=== PATIENT | male | born 1930 | race African-American/Black ===

== ENCOUNTER 2020-11-02 18:40 | Inpatient (IN) | payer MEDICARE, OTHER ==
[~2020-11-02] VITALS: Ht 172.7 cm; Wt 93.4 kg
--- NOTE | 2020-11-02 18:48 | NUR ---
[id number], from snf, low 02 sat 67% on room air, 96% on non-rebreather mask bp 67/40 on scene. [facility] bed 8, patient placed on isolation. on 79% oxygen saturation at RA, placed on NRB at 15lpm. o2 sat went up to 98%. patient aao X 0, unarousable by voice or tactile stimuli. changed to hosp gown. Noted w BLE edema, cagle catheter and distended abdomen. Dr holcomb at bedside
[2020-11-02] MEDS ORDERED: ACETAMINOPHEN 650 MG/SUPP.RECT RC ONE ×3 (18:57→19:04)
[2020-11-02] MEDS ORDERED: IV NS 0.9% 1,000 ML BAG IV ONE ×2 (19:00→20:30)
[2020-11-02] MEDS ORDERED: MEROPENEM 1 G in IV NS 0.9% 100 ML IV ONE (19:00)
[2020-11-02] MEDS ORDERED: LEVO75TA7 PO (19:02)
[2020-11-02] MEDS ORDERED: CRAN425C6 PO (19:02)
[2020-11-02] MEDS ORDERED: PANT40TA2 PO (19:02)
[2020-11-02] MEDS ORDERED: CRAN3875 PO (19:02)
[2020-11-02] MEDS ORDERED: CHOL100040 PO (19:02)
[2020-11-02] MEDS ORDERED: ASPI-1169 PO (19:02)
[2020-11-02] MEDS ORDERED: DOCU-141 PO (19:02)
[2020-11-02] MEDS ORDERED: ACET-868 PO (19:02)
[2020-11-02] MEDS ORDERED: ENOX40DI9 SQ (19:02)
[2020-11-02] MEDS ORDERED: MULT-447 PO (19:02)
[2020-11-02] MEDS ORDERED: FERR325T23 PO (19:02)
[2020-11-02] MEDS ORDERED: LISI40TA4 PO (19:02)
[2020-11-02] MEDS ORDERED: ASCO500T87 PO (19:02)
[2020-11-02] MEDS ORDERED: ATOR10TA PO (19:02)
[2020-11-02] MEDS ORDERED: IPRA3AMP23 IH (19:02)
[2020-11-02 19:09] LABS: BASOPHILS % (AUTO) 0.3 % (0.0-2.0); EOSINOPHILS % (AUTO) 0.1 % (0.0-6.0); HEMATOCRIT 26 % (39-51); HEMOGLOBIN 8.3 g/dL (13.5-17.5); LYMPHOCYTES # (AUTO) 2.1 /CMM (0.8-4.8); LYMPHOCYTES % (AUTO) 18.1 % (20.0-44.0); MEAN CORPUSCULAR HGB CONC 32 g/dl (31.0-36.0); MEAN CORPUSCULAR VOLUME 88 fL (80-96); MONOCYTES # (AUTO) 0.8 /CMM (0.1-1.30); MONOCYTES % (AUTO) 7.3 % (2.0-12.0); NEUTROPHILS # (AUTO) 8.5 /CMM (1.8-8.9); NEUTROPHILS % (AUTO) 74.2 % (43.0-81.0); PLATELET COUNT (AUTO) 287 /CMM (150-450); RED BLOOD CELL COUNT(AUTO) 2.91 MIL/uL (4.5-6.0); WHITE BLOOD COUNT (AUTO) 11.4 K/uL (4.3-11.0)
--- NOTE | 2020-11-02 19:12 | NUR ---
[facility] TEACHER AT BEDSIDE
--- NOTE | 2020-11-02 19:14 | NUR ---
COVID (RAPID AND PCR) DONE AND SENT TO LAB
--- NOTE | 2020-11-02 19:15 | NUR ---
RAPID INFLUENXA SWAB DONE AND SENT TO LAB
--- NOTE | 2020-11-02 19:25 | NUR ---
NGT INSERTED TO R NARE, NOTED G-TUBE FEEDING GASTRIC CONTENT NOTED APPROXIMATEL 650ML'S NOTED.
[2020-11-02 19:34] LABS: ALANINE AMINOTRANSFERASE 67 U/L (12-78); ALBUMIN 1.8 g/dL (3.4-5.0); ALKALINE PHOSPHATASE 75 U/L (46-116); ASPARTATE AMINOTRANSFERASE 84 U/L (15-37); BILIRUBIN,DIRECT 0.1 mg/dL (0.0-0.2); BILIRUBIN,TOTAL 0.4 mg/dL (0.2-1.0); CALCIUM, SERUM 8.1 mg/dL (8.5-10.1); CARBON DIOXIDE 22 mmol/L (21-32); CHLORIDE 96 mmol/L (98-107); GLUCOSE 158 mg/dL (74-106); SODIUM SERUM 138 mmol/L (136-145); TOTAL PROTEIN, SERUM 7.8 g/dL (6.4-8.2)
--- NOTE | 2020-11-02 19:40 | NUR ---
URINE SAMPLE COLLECTED FROM RAYMUNDO CATHETER. SENT SAMPLE TO LAB
[2020-11-02 19:47] LABS: BILIRUBIN,URINE SMALL (NEGATIVE); COLOR,URINE YELLOW (YELLOW); LEUKOCYTE ESTERASE ,URINE Trace (NEGATIVE); NITRITE, URINE Negative (NEGATIVE); PROTEIN,URINE >=300 mg/dl (NEGATIVE); UGLUCOSE Negative (NEGATIVE); UROBILINOGEN,URINE 0.2 EU/dL (0.2)
[2020-11-02 19:50] LABS: ABG BASE EXCESS -6.3 mmol/L; ABG OXYGEN SATURATION 97.7 % (92.0-98.5); ABG PCO2 52.2 mmHg (35.0-45.0); ABG PH 7.225 (7.350-7.450); ABG PO2 131.7 mmHg (75.0-100.0); AaDO2 383.9 mmHg; MetHb 0.7 % (0.0-1.5); SITE, ABG Left Radial; VENT MODE, BG 15L NRB
[2020-11-02 20:01] LABS: POTASSIUM 2.4 mmol/L (3.5-5.1)
[2020-11-02 20:02] LABS: CREATININE 11.4 mg/dL (0.6-1.3); UREA NITROGEN, BLOOD 140 mg/dL (7-18)
[2020-11-02 20:05] LABS: PH,URINE >9.0 (5.0-8.0)
--- NOTE | 2020-11-02 20:09 | NUR ---
PT TRANSPORTED TO RADIOLOGY FOR CT ABD/PELVIS WITH DELIA MARTINES.
[2020-11-02 20:10] LABS: BACTERIA,URINE Many /HPF (None Seen); RBC,URINE 0-2 /HPF (0-2); SQUAMOUS EPITHELIAL CELL,UR Few /HPF (None Seen); WBC,URINE 0-2 /HPF (0-3)
[2020-11-02 20:11] LABS: CALCIUM OXALATE CRYSTALS,UR Moderate /HPF (None Seen)
[2020-11-02] MEDS ORDERED: IV PREMIX D5 1/2NS + KCL 1,000 ML IV ONE ×2 (20:30→21:22)
--- NOTE | 2020-11-02 20:33 | NUR ---
RT pt placed on bipap per md order post abg results on 15lnrb. ph 7.22 co2 52 o2 131 hco3 21. bipap settings: 12 15/4 50% bipap plugged in to red outlet, ambu bag at bedside. pt tolerating bipap well at this time. will continue to monitor.
--- NOTE | 2020-11-02 20:36 | NUR ---
F/C IRRIGATED WITH 50ML'S NS WITH MODERATE AMOUNT OF PUS APPEARING URINE NOTED APPROXIMATELY 800ML'S. ER MADE AWARE.
--- NOTE | 2020-11-02 21:46 | NUR ---
P/C OUTPUT = 1300 MILKY COLOR URINE WITH BLOOD CLOTS NOTED. ER MADE AWARE.
--- NOTE | 2020-11-02 23:00 | NUR ---
RT AT BEDSIDE FOR REPEAT ABG.
[2020-11-02 23:11] LABS: ABG BASE EXCESS -5.3 mmol/L; ABG OXYGEN SATURATION 97.2 % (92.0-98.5); ABG PCO2 38.5 mmHg (35.0-45.0); ABG PH 7.335 (7.350-7.450); ABG PO2 106.2 mmHg (75.0-100.0); COHb 0.7 % (0.5-1.5); MetHb 0.3 % (0.0-1.5); O2Hb 96.2 % (94.0-97.0); SITE, ABG Left Radial; VENT MODE, BG ST 15/4 R12 50%
--- NOTE | 2020-11-02 23:18 | NUR ---
BIPAP SETTING CANGED BY RT TO 15/4, R-12, FIO2-50%. WILL CONTINUE TO MONITOR PT CLOSELY.
[2020-11-03] MEDS ORDERED: ONDANSETRON HCL/PF 4 MG/2 ML VIAL IVP PRN
[2020-11-03] MEDS ORDERED: HYDROCODONE/APAP 5/325MG TABLET GT PRN
[2020-11-03] MEDS ORDERED: IV NS 0.9% 1,000 ML IV PRN
[2020-11-03] MEDS ORDERED: MAGNESIUM HYDROXIDE 30 ML UDC PO PRN
[2020-11-03] MEDS ORDERED: Z GUARD REMEDY 2 OZ OINT TP PRN
[2020-11-03] MEDS ORDERED: ZOLPIDEM TARTRATE 5 MG TABLET PO PRN
[2020-11-03] MEDS ORDERED: TEMAZEPAM 15 MG CAPSULE GT PRN
[2020-11-03] MEDS ORDERED: ACETAMINOPHEN 650 MG/SUPP.RECT RC PRN
[2020-11-03] MEDS ORDERED: DEXTROSE 50%-WATER 50 ML DISP.SYRIN IV PRN (00:30)
[2020-11-03] MEDS ORDERED: VANCOMYCIN 1.5 GM in IV D5W 500ml IV ONE (00:30)
[2020-11-03] MEDS: BLOOD SUGAR DIAGNOSTIC 1 EACH STRIP IN SCH ×4 (00:41→17:56)
[2020-11-03] MEDS ORDERED: VANCOMYCIN 1 GM VIAL ONE (00:42)
[2020-11-03] MEDS ORDERED: VANCOMYCIN 500 MG VIAL ONE (00:42)
[2020-11-03] MEDS: INSULIN REGULAR, HUMAN 100 UNIT/ML 3 ML VIAL SQ PRN ×3 (00:55→12:24)
--- NOTE | 2020-11-03 01:19 | NUR ---
PT RESTING QUIETLY, NO ACUTE DISTRESS NOTED, RESP EVEN AND UNLABORE. NO PAIN OR DISCOMFORT NOTED AT THIS TIME. CALL LIGHT WITHIN REACH. WILL CONTINUE TO MONITOR PT CLOSELY.
[2020-11-03] MEDS ORDERED: NOREPINEPHRINE 4 MG/4 ML AMPUL IV ONE (01:55)
[2020-11-03] MEDS: NOREPINEPHRINE 8 MG in IV NS 0.9% 242 ML IV PRN ×2 (02:17→15:22)
--- NOTE | 2020-11-03 02:18 | NUR ---
LEVOPHED DRIP STARTED ON THE MAI PICC LINE FOR BP 81/45, HR-59, RR-15, O2 SAT-99% ON CURRENT BIPAP SETTING 15/4, RATE-12, FIO2 30%. WILL CONTINUE TO MONITOR PT CLOSELY.
[2020-11-03] MEDS ORDERED: MEROPENEM 1 G in IV NS 0.9% 100 ML IV ONE (04:00)
[2020-11-03] MEDS ORDERED: MEROPENEM 1 G VIAL IV ONE (04:04)
[2020-11-03 04:39] LABS: BASOPHILS % (AUTO) 0.1 % (0.0-2.0); EOSINOPHILS % (AUTO) 0.1 % (0.0-6.0); HEMATOCRIT 25 % (39-51); HEMOGLOBIN 8.2 g/dL (13.5-17.5); LYMPHOCYTES # (AUTO) 1.6 /CMM (0.8-4.8); LYMPHOCYTES % (AUTO) 9.2 % (20.0-44.0); MEAN CORPUSCULAR HGB CONC 33 g/dl (31.0-36.0); MEAN CORPUSCULAR VOLUME 86 fL (80-96); MONOCYTES # (AUTO) 0.9 /CMM (0.1-1.30); MONOCYTES % (AUTO) 5.4 % (2.0-12.0); NEUTROPHILS # (AUTO) 14.4 /CMM (1.8-8.9); NEUTROPHILS % (AUTO) 85.2 % (43.0-81.0); PLATELET COUNT (AUTO) 267 /CMM (150-450); RED BLOOD CELL COUNT(AUTO) 2.89 MIL/uL (4.5-6.0); WHITE BLOOD COUNT (AUTO) 16.9 K/uL (4.3-11.0)
--- NOTE | 2020-11-03 04:39 | NUR ---
CLEANED PATIENT. CHANGED TO NEW LINEN AND HOSP GOWN.
[2020-11-03 04:47] LABS: CALCIUM, SERUM 7.5 mg/dL (8.5-10.1); CARBON DIOXIDE 20 mmol/L (21-32); CHLORIDE 99 mmol/L (98-107); GLUCOSE 222 mg/dL (74-106); PHOSPHORUS 4.4 mg/dL (2.5-4.9); SODIUM SERUM 138 mmol/L (136-145)
[2020-11-03 04:55] LABS: CHOLESTEROL 110 mg/dL (<200); HDL CHOLESTEROL 26 mg/dL (40-60); LDL 56 mg/dL (0-99); TRIGLYCERIDES 102 mg/dL (30-150)
--- NOTE | 2020-11-03 04:59 | NUR ---
K 2.1 CR 9.37 BUN 129
[2020-11-03] MEDS ORDERED: MEROPENEM 1 G in IV NS 0.9% 100 ML IV SCH (05:00)
[2020-11-03 05:02] LABS: CREATININE 9.4 mg/dL (0.6-1.3); POTASSIUM 2.1 mmol/L (3.5-5.1); UREA NITROGEN, BLOOD 129 mg/dL (7-18)
[2020-11-03 05:37] LABS: BAND % (MANUAL) 17 % (0.0-5.0); LYMPHOCYTES % (MANUAL) 7 % (16-48); MONOCYTES % (MANUAL) 3 % (0-11.0); NEUTROPHILS % (MANUAL) 73 (42-76)
[2020-11-03] MEDS ORDERED: POTASSIUM CHLORIDE 20 MEQ POWDER PACKET GT ONE (07:00)
--- NOTE | 2020-11-03 07:14 | NUR ---
REPORT GIVEN TO AM SHIFT DELIA SANTIAGO
--- NOTE | 2020-11-03 07:15 | NUR ---
RECEIVED REPORT FROM SALES TECHNICIAN HOME THEATER FOR MARILYNN. PT IS AAOX0, ON VENT VIA TRACH, V/S STABLE, WITH ONGOING IVF AND LEVOPHED TRANSFUSING WELL, KEPT RESTED AND COMFORTABLE. WILL CONTINUE TO MONITOR.
[2020-11-03] MEDS ORDERED: POTASSIUM CHLORIDE 20 MEQ POWDER PACKET ONE (07:49)
[2020-11-03] MEDS ORDERED: PANTOPRAZOLE 40 MG VIAL ONE (08:44)
[2020-11-03] MEDS: PANTOPRAZOLE 40 MG VIAL IV SCH (08:48)
[2020-11-03] MEDS: POTASSIUM CL. PREMIX PERIPHER. 50 ML IV SCH ×4 (09:52→12:50)
[2020-11-03] MEDS: Potassium Chloride 20 MEQ in IV NS 0.9% 1,000 ML IV PRN (09:52)
--- NOTE | 2020-11-03 10:35 | NUR ---
RT AT BEDSIDE FOR BIPAP REMOVAL. PT IS ON NASAL CAN AT 2 LPM 02 SAT OF 97%. V/S STABLE. WILL CONTINUE TO MONITOR.
[2020-11-03 11:17] LABS: ABG BASE EXCESS -6.1 mmol/L; ABG OXYGEN SATURATION 94.3 % (92.0-98.5); ABG PCO2 35.8 mmHg (35.0-45.0); ABG PH 7.343 (7.350-7.450); ABG PO2 74.8 mmHg (75.0-100.0); AaDO2 140.4 mmHg; COHb 0.3 % (0.5-1.5); MetHb 0.5 % (0.0-1.5); O2Hb 93.5 % (94.0-97.0); SITE, ABG Right Radial; VENT MODE, BG NC4L
--- NOTE | 2020-11-03 11:35 | NUR ---
RT AT BEDSIDE FOR ABG AFTER REMOVAL OF BIPAP.
[2020-11-03] MEDS ORDERED: INSULIN REGULAR, HUMAN 100 UNIT/ML 10 ML VIAL ONE (12:22)
--- NOTE | 2020-11-03 12:49 | NUR ---
DRAINED 1350ML OF URINE OUTPUT.
[2020-11-03 14:16] LABS: CALCIUM, SERUM 7.5 mg/dL (8.5-10.1); CARBON DIOXIDE 22 mmol/L (21-32); CHLORIDE 104 mmol/L (98-107); GLUCOSE 144 mg/dL (74-106); SODIUM SERUM 140 mmol/L (136-145)
[2020-11-03 14:19] LABS: CREATININE 7.5 mg/dL (0.6-1.3); POTASSIUM 2.7 mmol/L (3.5-5.1); UREA NITROGEN, BLOOD 125 mg/dL (7-18)
--- NOTE | 2020-11-03 19:16 | NUR ---
REPORT GIVEN TO DELIA JOHNSON FOR MARILYNN. WITH ONGOING IVF AND LEVOPHED TITRATE TO EFFECT. V/S STABLE.
--- NOTE | 2020-11-03 20:23 | NUR ---
PATIENT IS REPOSITIONED TO THE LEFT
--- NOTE | 2020-11-03 22:34 | NUR ---
PATIENT IS REPOSITIONED TO THE RIGHT.
[2020-11-04] VITALS (39 sets, daily range): BP systolic 80–154; BP diastolic 50–107
--- NOTE | 2020-11-04 00:14 | NUR ---
PATIENT IS REPOSITIONED TO THE LEFT.
[2020-11-04] MEDS: BLOOD SUGAR DIAGNOSTIC 1 EACH STRIP IN SCH ×4 (01:09→18:23)
--- NOTE | 2020-11-04 02:13 | NUR ---
PATIENT HAD A BOWEL MOVEMENT. PATIENT IS CLEANED. PROVIDED WITH CLEAN SHEETS AND NEW GOWN. PATIENT IS REPOSITIONED TO THE RIGHT. PATIENT IS PROVIDED WITH A WARM BLANKET. NO FEVER NOTED.
[2020-11-04] MEDS: MEROPENEM 500 MG in IV NS 0.9% 50 ML IV SCH (04:32)
[2020-11-04 05:33] LABS: BASOPHILS % (AUTO) 0.2 % (0.0-2.0); EOSINOPHILS % (AUTO) 0.1 % (0.0-6.0); HEMATOCRIT 27 % (39-51); LYMPHOCYTES # (AUTO) 2.4 /CMM (0.8-4.8); LYMPHOCYTES % (AUTO) 10.8 % (20.0-44.0); MEAN CORPUSCULAR HGB CONC 34 g/dl (31.0-36.0); MEAN CORPUSCULAR VOLUME 85 fL (80-96); MONOCYTES # (AUTO) 1.6 /CMM (0.1-1.30); MONOCYTES % (AUTO) 7.1 % (2.0-12.0); NEUTROPHILS % (AUTO) 81.8 % (43.0-81.0); PLATELET COUNT (AUTO) 350 /CMM (150-450); RED BLOOD CELL COUNT(AUTO) 3.15 MIL/uL (4.5-6.0)
[2020-11-04 06:02] LABS: ALANINE AMINOTRANSFERASE 49 U/L (12-78); ALBUMIN 1.5 g/dL (3.4-5.0); ALKALINE PHOSPHATASE 84 U/L (46-116); ASPARTATE AMINOTRANSFERASE 52 U/L (15-37); BILIRUBIN,TOTAL 0.4 mg/dL (0.2-1.0); CALCIUM, SERUM 7.7 mg/dL (8.5-10.1); CARBON DIOXIDE 22 mmol/L (21-32); CHLORIDE 108 mmol/L (98-107); CREATININE 5.3 mg/dL (0.6-1.3); GLUCOSE 131 mg/dL (74-106); MAGNESIUM 2.8 mg/dL (1.8-2.4); PHOSPHORUS 2.9 mg/dL (2.5-4.9); SODIUM SERUM 147 mmol/L (136-145); TOTAL PROTEIN, SERUM 6.7 g/dL (6.4-8.2); VANCOMYCIN,RANDOM 14 ug/ml (18-26)
--- NOTE | 2020-11-04 06:03 | NUR ---
K 2.4 BUN 113
[2020-11-04 06:04] LABS: POTASSIUM 2.4 mmol/L (3.5-5.1); UREA NITROGEN, BLOOD 113 mg/dL (7-18)
[2020-11-04 06:19] LABS: CREATINE KINASE, TOTAL 1238 U/L (39-308)
--- NOTE | 2020-11-04 07:36 | NUR ---
REPORT GIVEN TO TUCKER LIN FOR MARILYNN.
[2020-11-04] MEDS: Potassium Chloride 20 MEQ in IV NS 0.9% 1,000 ML IV PRN ×2 (07:37→18:24)
--- NOTE | 2020-11-04 07:38 | NUR ---
PT IN BED SLEEPING. BREATHING EVEN AND UNLABORED. ON NASAL CANULA @ 4LPM.
--- NOTE | 2020-11-04 07:38 | NUR ---
PT IN LEVOPHED 0.1MCG/KG/MIN. VSS
[2020-11-04] MEDS ORDERED: PANTOPRAZOLE 40 MG VIAL ONE (08:11)
[2020-11-04] MEDS: PANTOPRAZOLE 40 MG VIAL IV SCH (08:48)
--- NOTE | 2020-11-04 10:16 | NUR ---
room 256
--- NOTE | 2020-11-04 11:08 | NUR ---
CALLED ANDS SPOKE WITH HUGH COPELAND REGARDING PT'S POTASSIUM OF 2.4. HUGH IS AWARE. NO NEW ORDERS AT THIS TIME. SHE WILL SE THE PATIENT DURING HER ROUNDS.
--- NOTE | 2020-11-04 11:46 | NUR ---
REPORT GIVEN TO DELIA MORTENSEN FOR MARILYNN
--- NOTE | 2020-11-04 12:15 | NUR ---
PT TRANSPORTED TO UNIT ON GURNEY WITH EMT AND RN AT BEDSIDE W/ ACLS PROTOCOL. NAD NOTED DURING TRANSPORT.
[2020-11-04] MEDS ORDERED: POTASSIUM CHLORIDE 20 MEQ POWDER PACKET GT ONE ×2 (13:00→15:30)
[2020-11-04 15:26] LABS: CALCIUM, SERUM 7.6 mg/dL (8.5-10.1); CARBON DIOXIDE 22 mmol/L (21-32); CHLORIDE 112 mmol/L (98-107); CREATININE 4.3 mg/dL (0.6-1.3); GLUCOSE 138 mg/dL (74-106); SODIUM SERUM 150 mmol/L (136-145)
[2020-11-04 15:34] LABS: POTASSIUM 2.4 mmol/L (3.5-5.1); UREA NITROGEN, BLOOD 105 mg/dL (7-18)
--- NOTE | 2020-11-04 19:45 | NUR ---
RN NOTES, PATIENT OBTUNDED IN BED, NO RESP DISTRESS NOTED IN NC AT 5LPM WITH OPTIMAL O2 SAT LEVEL 95% AT THIS TIME, MAI PICC LINE IN PLACE, AND NS WITH 20MEQ K+ INFUSING ORDERED, F/C IN PLACED DRAINING YELLOW URINE BY GRAVITY, WILL CONTINUE TO MONITOR CLOSELY. MONITOR CLOSELY,
[2020-11-04] MEDS: NOREPINEPHRINE 8 MG in IV NS 0.9% 242 ML IV PRN (21:03)
[2020-11-05] VITALS (86 sets, daily range): BP systolic 92–140; BP diastolic 46–109
[2020-11-05] MEDS ORDERED: VANCOMYCIN 1 GM in IV D5W 250 ML IV SCH ×2
[2020-11-05] MEDS: BLOOD SUGAR DIAGNOSTIC 1 EACH STRIP IN SCH ×5 (00:13→23:57)
[2020-11-05] MEDS: INSULIN REGULAR, HUMAN 100 UNIT/ML 3 ML VIAL SQ PRN ×4 (00:14→23:57)
[2020-11-05] MEDS: MEROPENEM 500 MG in IV NS 0.9% 50 ML IV SCH (04:10)
[2020-11-05 04:31] LABS: BASOPHILS # (AUTO) 0.1 /CMM (0.0-0.2); BASOPHILS % (AUTO) 0.4 % (0.0-2.0); EOSINOPHILS % (AUTO) 0.2 % (0.0-6.0); HEMATOCRIT 26 % (39-51); HEMOGLOBIN 8.3 g/dL (13.5-17.5); LYMPHOCYTES # (AUTO) 2.6 /CMM (0.8-4.8); LYMPHOCYTES % (AUTO) 10.9 % (20.0-44.0); MEAN CORPUSCULAR HGB CONC 32 g/dl (31.0-36.0); MEAN CORPUSCULAR VOLUME 86 fL (80-96); MONOCYTES # (AUTO) 1.5 /CMM (0.1-1.30); MONOCYTES % (AUTO) 6.5 % (2.0-12.0); NEUTROPHILS # (AUTO) 19.4 /CMM (1.8-8.9); PLATELET COUNT (AUTO) 348 /CMM (150-450); RED BLOOD CELL COUNT(AUTO) 3.05 MIL/uL (4.5-6.0); WHITE BLOOD COUNT (AUTO) 23.6 K/uL (4.3-11.0)
[2020-11-05 04:43] LABS: CARBON DIOXIDE 25 mmol/L (21-32); CHLORIDE 115 mmol/L (98-107); CREATININE 3.5 mg/dL (0.6-1.3); GLUCOSE 145 mg/dL (74-106); MAGNESIUM 2.6 mg/dL (1.8-2.4); PHOSPHORUS 2.7 mg/dL (2.5-4.9); SODIUM SERUM 153 mmol/L (136-145)
[2020-11-05 04:54] LABS: POTASSIUM 2.4 mmol/L (3.5-5.1)
[2020-11-05 04:57] LABS: UREA NITROGEN, BLOOD 96 mg/dL (7-18)
[2020-11-05] MEDS ORDERED: POTASSIUM CHLORIDE 10 MEQ/50 ML PREMIXED IVPB FOR PERIPHERAL LINE IV ONE (06:00)
--- NOTE | 2020-11-05 07:41 | NUR ---
RN NOTES, NO SIGNIFICANT CHANGE IN CONDITION DURING THE THE NIGHT, ENDORSED TO BALBINA LIN FOR CONTINUATION OF CARE.
[2020-11-05 08:12] LABS: PTH, INTACT 88 pg/mL (15-65)
--- NOTE | 2020-11-05 08:42 | NUR ---
WOUND CARE CONSULT: PT PRESENTS WITH MULTIPLE WOUNDS PRESENT ON ADMISSION INCLUDING SACRAL STAGE 4 ULCER, RT AND LEFT HEEL WOUNDS AND LEFT LOWERLEG WOUND. RECOMMEND SURGICAL AND DPM CONSULTS. DR MELISA LEYVA AND DR WILLINGHAM NOTIFIED OF CONSULT REQUESTS. PT IS ON JUDY ISOFLEX LOW AIRLOSS BED. ALL SKIN PROTECTION AND SACRAL WOUND RECOMMENDATIONS DISCUSSED WITH NURSING STAFF. DEFER TO DPM FOR LOWER EXTREMITIES. MD IN AGREEMENT WITH PLAN OF CARE. Addendum: 11/05/20 at 0844 by MAGO DOTSON WNDNU Amended: Links added.
[2020-11-05 09:07] LABS: *SPE A/G RATIO 0.4 (0.7-1.7); *SPE ALBUMIN 1.8 g/dL (2.9-4.4); *SPE ALPHA-1-GLOBULIN 0.5 g/dL (0.0-0.4); *SPE ALPHA-2-GLOBULIN 1.1 g/dL (0.4-1.0); *SPE GLOBULIN, TOTAL 4.1 g/dL (2.2-3.9); *SPE M-SPIKE Not Observed g/dL (Not Observed); *SPEGAMMA GLOBULIN 1.6 g/dL (0.4-1.8)
--- NOTE | 2020-11-05 09:37 | NUR ---
PER REPORT NIGHTSHIFT RN JEAN RECEIVED AN ORDER FOR 30MEQ KCL IV. ALL 3 10MEQ BAGS WERE SCANNED IN AT ONE TIME PER OVERRIDE ORDER. ALL 3 10MEQ BAGS WERE PASSED ON TO DAY SHIFT. EACH BAG WILL BE GIVEN OVER 1HR PER PROTOCOL. PHARMACY AWARE, UNABLE TO UNDO PREVIOUS RNS DOCUMENTATION SO THIS NOTE IS TO CLARIFY THAT 30MEQS WERE NOT GIVEN AT ONE TIME.
[2020-11-05] MEDS: PANTOPRAZOLE 40 MG VIAL IV SCH (10:59)
[2020-11-05] MEDS: DAKINS QUARTER STRENGTH (0.125%) 480 ML BOTTLE TOP SCH (12:32)
[2020-11-05 15:19] LABS: CREATININE KINASE (CK),MB 12.5 ng/mL (0.0-10.4)
[2020-11-05] MEDS: Potassium Chloride 20 MEQ in IV NS 0.9% 1,000 ML IV PRN (15:50)
[2020-11-05] MEDS: SILVER SULFADIAZINE CREAM 25 GM TUBE TP SCH (16:53)
[2020-11-05] MEDS: Potassium Chloride 40 MEQ in IV D5W 1,000 ML IV PRN (18:44)
--- NOTE | 2020-11-05 20:24 | NUR ---
RN NOTES PATIENT IS OBTUNDED, NO SOB OR ANY S/S OF RESP DISTRESS. ON O2 5LPM VIA NASAL CANNULA, O2 SAT 95%. MAI PICC LINE IN PLACE AND INTACT. F/C IN PLACE DRAINING YELLOW URINE BY GRAVITY. SAFETY MEASURES IN PLACE. WILL CONTINUE TO MONITOR.
[2020-11-06] VITALS (53 sets, daily range): BP systolic 81–115; BP diastolic 43–99
[2020-11-06] MEDS: MEROPENEM 500 MG in IV NS 0.9% 50 ML IV SCH (03:31)
[2020-11-06 04:29] LABS: BASOPHILS # (AUTO) 0.1 /CMM (0.0-0.2); BASOPHILS % (AUTO) 0.4 % (0.0-2.0); EOSINOPHILS % (AUTO) 0.5 % (0.0-6.0); HEMATOCRIT 23 % (39-51); HEMOGLOBIN 7.6 g/dL (13.5-17.5); LYMPHOCYTES # (AUTO) 2.1 /CMM (0.8-4.8); LYMPHOCYTES % (AUTO) 11.5 % (20.0-44.0); MEAN CORPUSCULAR HGB CONC 33 g/dl (31.0-36.0); MEAN CORPUSCULAR VOLUME 86 fL (80-96); MONOCYTES # (AUTO) 1.4 /CMM (0.1-1.30); MONOCYTES % (AUTO) 7.3 % (2.0-12.0); NEUTROPHILS # (AUTO) 14.9 /CMM (1.8-8.9); NEUTROPHILS % (AUTO) 80.3 % (43.0-81.0); PLATELET COUNT (AUTO) 300 /CMM (150-450); RED BLOOD CELL COUNT(AUTO) 2.71 MIL/uL (4.5-6.0); WHITE BLOOD COUNT (AUTO) 18.6 K/uL (4.3-11.0)
[2020-11-06 04:56] LABS: CALCIUM, SERUM 7.8 mg/dL (8.5-10.1); CARBON DIOXIDE 24 mmol/L (21-32); CHLORIDE 119 mmol/L (98-107); CREATININE 2.4 mg/dL (0.6-1.3); GLUCOSE 137 mg/dL (74-106); PHOSPHORUS 2.1 mg/dL (2.5-4.9)
[2020-11-06 05:18] LABS: SODIUM SERUM 158 mmol/L (136-145)
[2020-11-06 05:19] LABS: POTASSIUM 2.5 mmol/L (3.5-5.1); UREA NITROGEN, BLOOD 81 mg/dL (7-18)
[2020-11-06] MEDS: BLOOD SUGAR DIAGNOSTIC 1 EACH STRIP IN SCH ×3 (05:50→17:13)
[2020-11-06] MEDS: Potassium Chloride 40 MEQ in IV D5W 1,000 ML IV PRN ×2 (05:52→17:55)
[2020-11-06] MEDS: INSULIN REGULAR, HUMAN 100 UNIT/ML 3 ML VIAL SQ PRN ×2 (05:52→11:46)
--- NOTE | 2020-11-06 06:50 | NUR ---
WITH CRITICAL LAB NA 158, POTASSIUM 2.[address] WHITE MADE AWARE WITH NEW ORDER FOR POTASSIUM CHLORIDE 40MEQ (4 BAGS) IV PIGGY BACK NOTED AND CARRIED OUT.
[2020-11-06] MEDS: POTASSIUM CL. PREMIX PERIPHER. 50 ML IV SCH ×4 (07:28→10:31)
--- NOTE | 2020-11-06 08:00 | NUR ---
RN OPENING NOTES PATIENT IS OBTUNDED, NO SOB OR ANY S/S OF RESP DISTRESS. ON O2 5LPM VIA NASAL CANNULA, O2 SAT 92%. MAI PICC LINE IN PLACE AND INTACT NO S/S OF INFECTION OR INFILTRATION NOTED. F/C IN PLACE DRAINING YELLOW URINE BY GRAVITY. NO S/S OF ANY DISCOMFORT. SAFETY MEASURES IN PLACE PER HOSPITAL POLICY BED IS IN THE LOWEST POSITION AND SIDE RAILS ARE UP X2. WILL CONTINUE TO MONITOR
--- NOTE | 2020-11-06 08:14 | NUR ---
RN NOTES PATIENT IS OBTUNDED, NO SOB OR ANY S/S OF RESP DISTRESS. ON O2 5LPM VIA NASAL CANNULA, O2 SAT 92%. MAI PICC LINE IN PLACE AND INTACT. F/C IN PLACE DRAINING YELLOW URINE BY GRAVITY. NO S/S OF ANY DISCOMFORT. ALL DUE MEDS GIVEN ORDERED. SAFETY MEASURES IN PLACE. ENDORSED TO ONCOMING SHIFT.
[2020-11-06] MEDS: DAKINS QUARTER STRENGTH (0.125%) 480 ML BOTTLE TOP SCH (08:58)
[2020-11-06] MEDS: PANTOPRAZOLE 40 MG VIAL IV SCH (08:58)
[2020-11-06] MEDS: SILVER SULFADIAZINE CREAM 25 GM TUBE TP SCH (08:59)
[2020-11-06] MEDS ORDERED: SILVER NITRATE APPLICATOR 1 EA BOX TP ONE ×2 (11:30)
[2020-11-06] MEDS ORDERED: LIDOCAINE 1%-EPI 1:200,000 SDV 10 ML VIAL IJ ONE (11:30)
--- NOTE | 2020-11-06 11:30 | NUR ---
RN NOTES PATIENT WAS [facility].
[2020-11-06] MEDS ORDERED: IV D5W 1,000 ML IV PRN (12:00)
--- NOTE | 2020-11-06 12:30 | NUR ---
RN NOTES REPORT TO WAS GIVEN TO ETHEL POSADA
--- NOTE | 2020-11-06 12:30 | NUR ---
TELE/RN NOTE Received patient from SENIOR ANALYST, nonverbal, responsive to tactile stimulation. No s/s of any pain and discomfort at this time. Breathing even and non-labored on 5 L oxygen via NC, no respiratory distress noted. No cardiac distress noted, on tele monitor reading SR 83. MAI PICC line, R hand #22g, and L hand #22g present, patent and intact, and running KCL D5W @175 ML/HR. Laura in place, draining cloudy yellow urine well. G-tube in place, patent and intact, and clamped. Bed locked to its lowest position, side rails x 2 up, bed alarm on. Will continue with current medical management.
--- NOTE | 2020-11-06 14:00 | NUR ---
TELE/RN NOTE KIKI Alicia at bedside for patient's excisional debridement of sacral wound. Swabbed for gram stain, notified lab for chicken picker.
--- NOTE | 2020-11-06 15:00 | NUR ---
TELE/RN NOTE TRIED CALLING PATIENT'S SNF 3 TIMES TO VERIFY G-TUBE FEEDING ORDER, PER SNF, "CALL AGAIN IN HALF AN HOUR"
[2020-11-06] MEDS ORDERED: VANCOMYCIN 1 GM in IV D5W 250 ML IV SCH (16:00)
[2020-11-06] MEDS ORDERED: K PHOS NEUTRAL 250 MG TABLET PO ONE (17:00)
[2020-11-06] MEDS ORDERED: GLUCERNA 1.2 1,000 ML BOTTLE NG PRN (17:00)
--- NOTE | 2020-11-06 17:00 | NUR ---
TELE/RN NOTE OBTAINED G-TUBE FEEDING ORDER FROM [facility]: Glucerna 1.2 @40 cc/hr x [address] Sabino Cottrell, per jono LEE to start g-tube feeding. Called dietary to bring up glucerna.
--- NOTE | 2020-11-06 17:15 | NUR ---
TELE/RN NOTE ADMINISTERED KPHOS 500 MG TABLET VIA G-TUBE, NOT PO.
[2020-11-06] MEDS: GLUCERNA 1.2 1,000 ML BOTTLE NG PRN (17:54)
--- NOTE | 2020-11-06 18:00 | NUR ---
TELE/RN NOTE NOTIFIED LAB TO TEST TECH SPECIMEN IN [place].
--- NOTE | 2020-11-06 19:00 | NUR ---
TELE/RN CLOSING NOTE Patient remains nonverbal, responsive to tactile stimulation. No s/s of any pain and discomfort at this time. Breathing even and non-labored on 5 L oxygen via NC, no respiratory distress noted. No cardiac distress noted, on tele monitor reading SR 85. MAI PICC line, R hand #22g, and L hand #22g present, patent and intact, and running KCL D5W @175 ML/HR. Laura in place, draining cloudy yellow urine well. G-tube in place, patent and intact, and running Glucerna 1.2 @ 40 cc/hr, no gastric residual noted. Fall precautions maintained. Will endorse to night shift manager nurse.
--- NOTE | 2020-11-06 20:00 | NUR ---
TELE AFTER SCHOOL DRIVER INITIAL NOTES RECEIVED REPORT FROM LETICIA DAVENPORT, PATIENT OBTUNDED IN BED, NO RESP DISTRESS NOTED IN NC AT 5LPM WITH OPTIMAL O2 SAT LEVEL 95% AT THIS TIME, MAI PICC LINE IN PLACE, AND KCL D5W @ 175ML/HR INFUSING AT THIS TIME ORDERED, F/C IN PLACED DRAINING YELLOW URINE BY GRAVITY, HE ALSO ON G-TUBE FEEDING. NO ASPIRATION NOTED AT THIS TIME. TELE SINUS RHYTHM PER MONITOR. KEPT HIM WARM AND COMFORTABLE AT ALL TIMES. WILL CONTINUE TO MONITOR CLOSELY.
[2020-11-07] VITALS: BP 97/47
--- NOTE | 2020-11-07 | NUR ---
TELE COMPLAINT SUPERVISOR NOTES BLOOD SUGAR 113 NO INSULIN DUE AT THIS TIMES. NO SIGNS OF HYPOGLYCEMIA NOTED. G-TUBE FEEDING TOLERATED WELL NO ASPIRATION NOTED. WILL CONTINUE MONITORING.
[2020-11-07] MEDS: BLOOD SUGAR DIAGNOSTIC 1 EACH STRIP IN SCH ×5 (00:38→23:46)
[2020-11-07] MEDS: INSULIN REGULAR, HUMAN 100 UNIT/ML 3 ML VIAL SQ PRN ×2 (00:39→07:14)
[2020-11-07] MEDS: Potassium Chloride 40 MEQ in IV D5W 1,000 ML IV PRN ×4 (02:50→23:36)
[2020-11-07 04:00] VITALS: BP 91/51
[2020-11-07] MEDS: MEROPENEM 500 MG in IV NS 0.9% 50 ML IV SCH (05:15)
--- NOTE | 2020-11-07 07:30 | NUR ---
RN OPENING NOTE PT IS UNABLE TO SPEAK. PT IS ABLE TO RESPOND TO NAME. PT IS AWAKE AND RESTING IN BED. PT IS CURRENTLY ON 5L O2 VIA NASAL CANNULA. NO COUGHING, SOB, OR SIGNS OF RESPIRATORY DISTRESS PRESENT. PT IS SINUS RHYTHM ON MONITOR. PT IS ON BEDREST. PT HAS G TUBE AND RAYMUNDO CATHETER PRESENT. PT HAS A SACRAL WOUNDS PRESENT. IVF PRESENT IN L HAND. BED IN LOWEST POSITION. 2 SIDE RAILS RAISED. CALL LIGHT WITHIN REACH. WILL CONTINUE TO MONITOR.
[2020-11-07 08:00] VITALS: BP 103/56
--- NOTE | 2020-11-07 08:05 | NUR ---
tele tile shader closing notes pt resting and no signs of any distress noted. breathing even and unlabored. all due meds given and all nees met. tele SR per monitor. IVF still infusing. kept hm warm and comfortable at all times. endorse to am nurse.
[2020-11-07 08:37] LABS: BASOPHILS % (AUTO) 0.2 % (0.0-2.0); EOSINOPHILS % (AUTO) 1.4 % (0.0-6.0); HEMATOCRIT 22 % (39-51); LYMPHOCYTES # (AUTO) 2.5 /CMM (0.8-4.8); MEAN CORPUSCULAR HGB CONC 32 g/dl (31.0-36.0); MEAN CORPUSCULAR VOLUME 87 fL (80-96); MONOCYTES # (AUTO) 1.5 /CMM (0.1-1.30); MONOCYTES % (AUTO) 7.1 % (2.0-12.0); NEUTROPHILS # (AUTO) 16.8 /CMM (1.8-8.9); NEUTROPHILS % (AUTO) 79.3 % (43.0-81.0); PLATELET COUNT (AUTO) 298 /CMM (150-450); RED BLOOD CELL COUNT(AUTO) 2.52 MIL/uL (4.5-6.0); WHITE BLOOD COUNT (AUTO) 21.2 K/uL (4.3-11.0)
--- NOTE | 2020-11-07 08:47 | NUR ---
NOTIFIED DR MELISA QUEZADA OF PT'S LOW HGB :7 WITH ORDERS TO TRANSFUSE 1 UNIT PR[facility]
[2020-11-07 08:56] LABS: CALCIUM, SERUM 7.5 mg/dL (8.5-10.1); CARBON DIOXIDE 22 mmol/L (21-32); CHLORIDE 117 mmol/L (98-107); CREATININE 1.8 mg/dL (0.6-1.3); GLUCOSE 160 mg/dL (74-106); MAGNESIUM 2.2 mg/dL (1.8-2.4); PHOSPHORUS 2.3 mg/dL (2.5-4.9); SODIUM SERUM 150 mmol/L (136-145); UREA NITROGEN, BLOOD 70 mg/dL (7-18); VANCOMYCIN,RANDOM 19 ug/ml (18-26)
[2020-11-07 09:19] LABS: POTASSIUM 2.8 mmol/L (3.5-5.1)
[2020-11-07] MEDS: PANTOPRAZOLE 40 MG VIAL IV SCH (09:37)
[2020-11-07] MEDS: DAKINS QUARTER STRENGTH (0.125%) 480 ML BOTTLE TOP SCH (09:39)
[2020-11-07] MEDS ORDERED: NEUTRA PHOS 1 POWD.PACKET GT ONE (12:30)
[2020-11-07] MEDS: SILVER SULFADIAZINE CREAM 25 GM TUBE TP SCH (14:23)
[2020-11-07 16:03] VITALS: BP 116/55
[2020-11-07] MEDS: VANCOMYCIN 1 GM in IV D5W 250 ML IV SCH (16:38)
--- NOTE | 2020-11-07 18:38 | NUR ---
RN CLOSING NOTE PT IS AWAKE IN BED. PT IS UNABLE TO SLEEP. PT IS ABLE TO RESPOND TO NAME. HE IS ON NASAL CANNULA 5L WITH NO SOB PRESENT. MONITOR RECORDS HEARD RHYTHM SINUS. PT IS ON BEDREST, G TUBE PRESENT FOR FEEDINGS. THERE IS A WOUND IN THE SACRAL AREA. BED IN THE LOWEST POSITION. BED RAILS RAISED. CALL LIGHT WITHIN REACH. ROUTINE MEDS GIVEN.
--- NOTE | 2020-11-07 19:35 | NUR ---
RN NOTES PT IS AWAKE IN BED. ASLEEP. PT IS ABLE TO RESPOND TO NAME. HE IS ON NASAL CANNULA 5L WITH NO SOB PRESENT. MONITOR RECORDS HEARD RHYTHM SINUS. PT IS ON BEDREST, G TUBE PRESENT FOR FEEDINGS. THERE IS A WOUND IN THE SACRAL AREA. BED IN THE LOWEST POSITION. BED RAILS RAISED. CALL LIGHT WITHIN REACH. WILL CONTINUE TO MONITOR.
[2020-11-07 20:00] VITALS: BP 100/58
[2020-11-07] MEDS: GLUCERNA 1.2 1,000 ML BOTTLE NG PRN (22:01)
[2020-11-08] VITALS (10 sets, daily range): BP systolic 89–112; BP diastolic 41–60
--- NOTE | 2020-11-08 | NUR ---
RN NOTES FOLLOWED UP WITH BLOOD BANK REGARDING THE UNIT OF PRBC PER BLOOD BANK NO ORDER HAD BEEN PLACED FOR BLOOD. PLACED AN ORDER FOR PR[facility]
[2020-11-08] MEDS: MEROPENEM 500 MG in IV NS 0.9% 50 ML IV SCH (03:11)
[2020-11-08] MEDS: BLOOD SUGAR DIAGNOSTIC 1 EACH STRIP IN SCH ×4 (05:56→23:37)
--- NOTE | 2020-11-08 07:16 | NUR ---
RN NOTES PT IS AWAKE IN BED. ASLEEP. PT IS ABLE TO RESPOND TO NAME. HE IS ON NASAL CANNULA 5L WITH NO SOB PRESENT. MONITOR RECORDS HEARD RHYTHM SINUS. PT IS ON BEDREST, G TUBE PRESENT FOR FEEDINGS. THERE IS A WOUND IN THE SACRAL AREA. BED IN THE LOWEST POSITION. BED RAILS RAISED. CALL LIGHT WITHIN REACH. WILL CONTINUE TO MONITOR. ORDER TO ADMINISTER I UNIT OF PRBC BLOOD NOT READY YET WILL ENDORSE TO DAY SHIFT.
--- NOTE | 2020-11-08 08:00 | NUR ---
RN Opening note Received patient in bed, awaken able to responds all stimuli, Pt does no appears pain or distress. Skin is warm to touch keep clean/dry intact piccline on right arm and IV site left hand, respiratory even and unlabored with oxygen at 5L via NC, O2sat 93%. Kept locked bed with elevated HOB for aspiration precaution and ensure airway and lowest bed foe safety. Call light within reach, will continue to monitor.
[2020-11-08] MEDS: SILVER SULFADIAZINE CREAM 25 GM TUBE TP SCH (09:41)
[2020-11-08] MEDS: PANTOPRAZOLE 40 MG VIAL IV SCH (09:41)
[2020-11-08] MEDS: DAKINS QUARTER STRENGTH (0.125%) 480 ML BOTTLE TOP SCH (09:41)
[2020-11-08] MEDS: Potassium Chloride 40 MEQ in IV D5W 1,000 ML IV PRN (09:50)
[2020-11-08 10:16] LABS: BASOPHILS % (AUTO) 0.2 % (0.0-2.0); EOSINOPHILS % (AUTO) 2.8 % (0.0-6.0); LYMPHOCYTES # (AUTO) 3.1 /CMM (0.8-4.8); LYMPHOCYTES % (AUTO) 15.4 % (20.0-44.0); MEAN CORPUSCULAR HGB CONC 32 g/dl (31.0-36.0); MEAN CORPUSCULAR VOLUME 87 fL (80-96); MONOCYTES # (AUTO) 1.5 /CMM (0.1-1.30); MONOCYTES % (AUTO) 7.2 % (2.0-12.0); NEUTROPHILS # (AUTO) 15.2 /CMM (1.8-8.9); NEUTROPHILS % (AUTO) 74.4 % (43.0-81.0); PLATELET COUNT (AUTO) 268 /CMM (150-450); RED BLOOD CELL COUNT(AUTO) 2.31 MIL/uL (4.5-6.0); WHITE BLOOD COUNT (AUTO) 20.4 K/uL (4.3-11.0)
[2020-11-08 10:26] LABS: HEMATOCRIT 20 % (39-51); HEMOGLOBIN 6.4 g/dL (13.5-17.5)
[2020-11-08 14:10] LABS: BAND % (MANUAL) 2 % (0.0-5.0); EOSINOPHILS % (MANUAL) 3 % (0-4); LYMPHOCYTES % (MANUAL) 17 % (16-48); MONOCYTES % (MANUAL) 12 % (0-11.0); MYELOCYTES % 1 % (0-0); NEUTROPHILS % (MANUAL) 65 (42-76)
[2020-11-08] MEDS: VANCOMYCIN 1 GM in IV D5W 250 ML IV SCH (16:59)
[2020-11-08 17:04] LABS: CALCIUM, SERUM 7.6 mg/dL (8.5-10.1); CARBON DIOXIDE 21 mmol/L (21-32); CHLORIDE 114 mmol/L (98-107); CREATININE 1.5 mg/dL (0.6-1.3); GLUCOSE 114 mg/dL (74-106); POTASSIUM 2.9 mmol/L (3.5-5.1); SODIUM SERUM 148 mmol/L (136-145); UREA NITROGEN, BLOOD 57 mg/dL (7-18)
--- NOTE | 2020-11-08 18:30 | NUR ---
RN closing Patient in bed resting, does no appears distress or discomfort. Skin is warm to touch, keep clean/dry, intact IV site, no s/s of adverse reaction observed from post blood tans fusion. Respiratory even and unlabored with oxygen at 5L O2sat 100%. Kept elevated HOB for ensure air way and aspiration precaution and lowest bed for safety. Call light within reach, will endorse maintenance technician 2nd shift
--- NOTE | 2020-11-08 18:47 | NUR ---
Patient finished blood transfusion, no s/s adverse reaction observed.
--- NOTE | 2020-11-08 19:20 | NUR ---
RN NOTE Patient Received. Patient is in bed with eyes open and responsive to touch. Breathing even and non labored and continues on 5L via NC. No acute distress or shortness of breath noted. Patient is noted with PICC line to MAI noted patent and intact. Patient is noted with IV site to L hand 22G noted patent and intact. Laura catheter noted patent and intact draining clear yellow urine. Safety precautions in place, bed in lowest position, and locked. call light within reach. Will continue plan of care as ordered.
[2020-11-08 19:31] LABS: MAGNESIUM 1.9 mg/dL (1.8-2.4); PHOSPHORUS 3.2 mg/dL (2.5-4.9)
[2020-11-09] MEDS: MEROPENEM 500 MG in IV NS 0.9% 50 ML IV SCH (04:23)
[2020-11-09] MEDS: BLOOD SUGAR DIAGNOSTIC 1 EACH STRIP IN SCH ×3 (05:29→17:54)
[2020-11-09] MEDS: Potassium Chloride 40 MEQ in IV D5W 1,000 ML IV PRN ×2 (05:29→22:30)
--- NOTE | 2020-11-09 06:58 | NUR ---
RN NOTE Patient is in bed with eyes open and responsive to touch. Breathing even and non labored and continues on 5L via NC. No acute distress or shortness of breath noted. Patient is noted with PICC line to MAI noted patent and intact. Patient is noted with IV site to L hand 22G noted patent and intact. Alura catheter noted patent and intact draining clear yellow urine. All medications administered as per order. Accu checks rendered with coverage as ordered. Safety precautions in place, bed in lowest position, and locked. call light within reach. Will continue plan of care as ordered.
[2020-11-09 08:00] VITALS: BP 110/44
[2020-11-09] MEDS: PANTOPRAZOLE 40 MG VIAL IV SCH (08:40)
[2020-11-09] MEDS: DAKINS QUARTER STRENGTH (0.125%) 480 ML BOTTLE TOP SCH (08:44)
[2020-11-09] MEDS: SILVER SULFADIAZINE CREAM 25 GM TUBE TP SCH (08:44)
[2020-11-09 12:00] VITALS: BP 100/50
[2020-11-09 16:00] VITALS: BP 106/48
[2020-11-09] MEDS: GLUCERNA 1.2 1,000 ML BOTTLE NG PRN (18:34)
[2020-11-09 20:00] VITALS: BP 122/52
--- NOTE | 2020-11-09 20:54 | NUR ---
AM SHIFT REPORT PT IN BED. A/O X1. AFEBRILE. IN NO APPARENT DISTRESS. BREATHING EVEN AND UNLABORED. ON TELE READING. RAYMUNDO CATH DRAINING IN YELLOW URINE. GLUCERNA RATE GOAL 55 ML/HR, TOLERATING WELL. ROUTINE MEDS WERE GIVEN. IV SITE MAI PICC LINE. L HAND #22 G. SACRAL WOUND, BOTH HEELS KEPT CLEAN AND DRY, PROVIDED SAFETY MEASURES. BED IN LOWEST POSITION, LOCKED. SIDE RAILS UP X2. CALL LIGHT WITHIN REACH. WILL ENDORSE TO MANAGER OF INTERNAL FOR MARILYNN.
[2020-11-09 21:04] LABS: BASOPHILS % (AUTO) 0.2 % (0.0-2.0); EOSINOPHILS % (AUTO) 2.3 % (0.0-6.0); HEMATOCRIT 24 % (39-51); HEMOGLOBIN 7.8 g/dL (13.5-17.5); LYMPHOCYTES # (AUTO) 2.7 /CMM (0.8-4.8); LYMPHOCYTES % (AUTO) 16.6 % (20.0-44.0); MEAN CORPUSCULAR HGB CONC 32 g/dl (31.0-36.0); MEAN CORPUSCULAR VOLUME 86 fL (80-96); MONOCYTES # (AUTO) 1.1 /CMM (0.1-1.30); MONOCYTES % (AUTO) 6.6 % (2.0-12.0); NEUTROPHILS # (AUTO) 12.3 /CMM (1.8-8.9); NEUTROPHILS % (AUTO) 74.3 % (43.0-81.0); PLATELET COUNT (AUTO) 297 /CMM (150-450); RED BLOOD CELL COUNT(AUTO) 2.82 MIL/uL (4.5-6.0); WHITE BLOOD COUNT (AUTO) 16.5 K/uL (4.3-11.0)
[2020-11-09 21:33] LABS: BAND % (MANUAL) 1 % (0.0-5.0); EOSINOPHILS % (MANUAL) 2 % (0-4); LYMPHOCYTES % (MANUAL) 19 % (16-48); MONOCYTES % (MANUAL) 4 % (0-11.0); NEUTROPHILS % (MANUAL) 74 (42-76)
[2020-11-09 22:00] LABS: ALANINE AMINOTRANSFERASE 32 U/L (12-78); ALKALINE PHOSPHATASE 84 U/L (46-116); ASPARTATE AMINOTRANSFERASE 37 U/L (15-37); BILIRUBIN,TOTAL 0.4 mg/dL (0.2-1.0); CALCIUM, SERUM 7.9 mg/dL (8.5-10.1); CARBON DIOXIDE 24 mmol/L (21-32); CHLORIDE 115 mmol/L (98-107); CREATININE 1.5 mg/dL (0.6-1.3); GLUCOSE 117 mg/dL (74-106); MAGNESIUM 1.6 mg/dL (1.8-2.4); PHOSPHORUS 4.1 mg/dL (2.5-4.9); SODIUM SERUM 150 mmol/L (136-145); TOTAL PROTEIN, SERUM 6.4 g/dL (6.4-8.2); UREA NITROGEN, BLOOD 42 mg/dL (7-18)
[2020-11-09 22:01] LABS: POTASSIUM 2.7 mmol/L (3.5-5.1)
[2020-11-09 22:02] LABS: ALBUMIN 1.4 g/dL (3.4-5.0)
[2020-11-10] VITALS: BP 102/48
[2020-11-10] MEDS ORDERED: VANCOMYCIN 0.75 GM in IV D5W 250 ML IV SCH ×2
[2020-11-10] MEDS: BLOOD SUGAR DIAGNOSTIC 1 EACH STRIP IN SCH ×5 (00:22→23:36)
[2020-11-10] MEDS: INSULIN REGULAR, HUMAN 100 UNIT/ML 3 ML VIAL SQ PRN ×2 (00:22→06:42)
[2020-11-10 04:00] VITALS: BP 109/48
[2020-11-10] MEDS: MEROPENEM 500 MG in IV NS 0.9% 50 ML IV SCH (04:34)
--- NOTE | 2020-11-10 07:07 | NUR ---
SEWING DEPARTMENT SUPERVISOR OPENING NOTES RECEIVED PT IN BED IN NO ACUTE SIGNS OF DISTRESS. HOB ELEVATED. A/O X1. RESPONDS TO NAME ONLY. NON-VERBAL. ON 5L O2 VIA N/C, TOLERATING WELL WITH NO SOB NOTED AT THIS TIME. EXTERNAL MONITOR SHOWS NSR WITH HR ON THE 60'S, NO S/S OF CARDIAC DISTRESS NOTED. G-TUBE IN PLACE WITH GLUCERNA 1.2 FEEDING AT 55ML/HR IN PROGRESS TOLERATING WE. ASPIRATION PRECAUTIONS MAINTAINED. MAI PICC LINE AND IV SL G#22 LEFT HAND BOTH INTACT AND PATENT. IVF INFUSING ORDERED. ON RAYMUNDO CATHETER IN PLACE WITH CLEAR YELLOW OUTPUT NOTED. SAFETY MEASURES IN PLACE: BED IN LOWEST LOCKED POSITION, SIDE RAILS UP X2. AND CALL LIGHT WITHIN REACH. WILL CONTINUE TO MONITOR.
[2020-11-10 07:24] LABS: BASOPHILS % (AUTO) 0.2 % (0.0-2.0); EOSINOPHILS % (AUTO) 2.6 % (0.0-6.0); HEMATOCRIT 24 % (39-51); HEMOGLOBIN 7.7 g/dL (13.5-17.5); LYMPHOCYTES # (AUTO) 2.7 /CMM (0.8-4.8); MEAN CORPUSCULAR HGB CONC 32 g/dl (31.0-36.0); MEAN CORPUSCULAR VOLUME 86 fL (80-96); MONOCYTES # (AUTO) 1.1 /CMM (0.1-1.30); MONOCYTES % (AUTO) 7.5 % (2.0-12.0); NEUTROPHILS # (AUTO) 10.9 /CMM (1.8-8.9); NEUTROPHILS % (AUTO) 71.7 % (43.0-81.0); PLATELET COUNT (AUTO) 284 /CMM (150-450); RED BLOOD CELL COUNT(AUTO) 2.77 MIL/uL (4.5-6.0); WHITE BLOOD COUNT (AUTO) 15.2 K/uL (4.3-11.0)
[2020-11-10 07:38] LABS: CALCIUM, SERUM 7.7 mg/dL (8.5-10.1); CARBON DIOXIDE 25 mmol/L (21-32); CHLORIDE 114 mmol/L (98-107); CREATININE 1.4 mg/dL (0.6-1.3); GLUCOSE 123 mg/dL (74-106); MAGNESIUM 1.6 mg/dL (1.8-2.4); PHOSPHORUS 4.3 mg/dL (2.5-4.9); SODIUM SERUM 151 mmol/L (136-145); UREA NITROGEN, BLOOD 37 mg/dL (7-18)
[2020-11-10 07:46] LABS: POTASSIUM 2.7 mmol/L (3.5-5.1)
--- NOTE | 2020-11-10 08:56 | NUR ---
RN NOTES RECEIVED CALL FROM COAL YARD SUPERVISOR [facility] THAT PT HAS CRITICAL LOW LEVEL POTASSIUM 2.7. LEASE ATTENDANT LISSY MADE AWARE AND STATED THAT HE WILL PUT AN ORDER TO REPLACE POTASSIUM TODAY. WILL CONTINUE TO MONITOR.
[2020-11-10] MEDS: PANTOPRAZOLE 40 MG VIAL IV SCH (08:58)
--- NOTE | 2020-11-10 10:00 | NUR ---
tele contact lens curve grinder: notes anirudh (acnp) here and reminded him re: low potassium level 2.7.
[2020-11-10] MEDS: Magnesium 1GM/D5W 100ML PREMIX 100 ML IV SCH ×2 (10:50→11:50)
--- NOTE | 2020-11-10 11:00 | NUR ---
tele milliner helper: md visit seen by anirudh (acnp) with new orders. orders acknowledged. pt for d'c planning to snf in 1-2 days. case management to make arrangement.
--- NOTE | 2020-11-10 11:30 | NUR ---
tele frame stylist: dpm f/u dr. yanez at bedside at this time.
[2020-11-10] MEDS: DAKINS QUARTER STRENGTH (0.125%) 480 ML BOTTLE TOP SCH (11:41)
[2020-11-10] MEDS: SILVER SULFADIAZINE CREAM 25 GM TUBE TP SCH (11:42)
[2020-11-10] MEDS: POTASSIUM CL. PREMIX PERIPHER. 50 ML IV SCH ×6 (12:50→18:03)
--- NOTE | 2020-11-10 15:00 | NUR ---
tele creel selector: notes wound care rendered. kept clean and dry. hob elevated. turned and repositioned. will continue to monitor.
--- NOTE | 2020-11-10 18:30 | NUR ---
tele unclaimed property manager: notes in bed resting comfortable. last dose (#6 bags) of potassium chloride 10meq infusing. needs attended. no distress noted. hob elevated. will continue to monitor.
--- NOTE | 2020-11-10 19:00 | NUR ---
tele station engineer main line: notes report given to baltazar Carpenterrn) for continuity of care.
--- NOTE | 2020-11-10 19:53 | NUR ---
BUCKLE SORTER OPENING NOTE Patient asleep in bed, A/O x1, non-verbal, responds to physical stimuli. Tele monitor reading sinus rhythm. No JVD. Brachial and pedal pulses 2+, symmetrical. Breathing even, clear, unlabored on 4 LPM NC. Skin is warm, pink, dry with stage 4 pressure ulcer. Wound dressing clean, dry, intact. 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 Bony prominences offloaded. Turn and reposition q2h. IV site MAI PICC line patent, no signs of redness. IV site right hand 22g, patent and intact. No signs of redness or infiltration. G-tube patent and intact, no residual, no redness around site. G tube feeding running @ 55 ml/hr, patient tolerating well. Laura catheter in place, urine output clear and yellow without sediment. Bed in low position, wheels locked, side rails up x2, call light within reach.
[2020-11-10 20:00] VITALS: BP 114/73
[2020-11-10] MEDS: GLUCERNA 1.2 1,000 ML BOTTLE NG PRN (20:38)
[2020-11-11] MEDS: Potassium Chloride 40 MEQ in IV D5W 1,000 ML IV PRN ×2 (03:33→14:09)
[2020-11-11] MEDS: MEROPENEM 500 MG in IV NS 0.9% 50 ML IV SCH (03:33)
[2020-11-11] MEDS: BLOOD SUGAR DIAGNOSTIC 1 EACH STRIP IN SCH ×3 (05:11→18:40)
[2020-11-11 07:54] LABS: BASOPHILS # (AUTO) 0.1 /CMM (0.0-0.2); BASOPHILS % (AUTO) 0.7 % (0.0-2.0); EOSINOPHILS % (AUTO) 2.5 % (0.0-6.0); HEMATOCRIT 26 % (39-51); HEMOGLOBIN 8.2 g/dL (13.5-17.5); LYMPHOCYTES # (AUTO) 2.9 /CMM (0.8-4.8); LYMPHOCYTES % (AUTO) 15.9 % (20.0-44.0); MEAN CORPUSCULAR HGB CONC 32 g/dl (31.0-36.0); MEAN CORPUSCULAR VOLUME 87 fL (80-96); MONOCYTES # (AUTO) 1.3 /CMM (0.1-1.30); NEUTROPHILS # (AUTO) 13.6 /CMM (1.8-8.9); NEUTROPHILS % (AUTO) 73.9 % (43.0-81.0); PLATELET COUNT (AUTO) 243 /CMM (150-450); RED BLOOD CELL COUNT(AUTO) 2.95 MIL/uL (4.5-6.0); WHITE BLOOD COUNT (AUTO) 18.5 K/uL (4.3-11.0)
[2020-11-11 08:00] VITALS: BP 114/64
[2020-11-11 08:26] LABS: CALCIUM, SERUM 8.3 mg/dL (8.5-10.1); CARBON DIOXIDE 26 mmol/L (21-32); CHLORIDE 116 mmol/L (98-107); CREATININE 1.4 mg/dL (0.6-1.3); GLUCOSE 126 mg/dL (74-106); PHOSPHORUS 3.7 mg/dL (2.5-4.9); POTASSIUM 3.3 mmol/L (3.5-5.1); SODIUM SERUM 152 mmol/L (136-145); UREA NITROGEN, BLOOD 33 mg/dL (7-18)
[2020-11-11] MEDS: PANTOPRAZOLE 40 MG/PACK PACK GT SCH (09:46)
[2020-11-11] MEDS: DAKINS QUARTER STRENGTH (0.125%) 480 ML BOTTLE TOP SCH (09:47)
[2020-11-11] MEDS: SILVER SULFADIAZINE CREAM 25 GM TUBE TP SCH (09:47)
[2020-11-11 12:00] VITALS: BP 113/61
[2020-11-11 16:00] VITALS: BP 111/66
--- NOTE | 2020-11-11 18:00 | NUR ---
RECEIVED PT. IN AM.VS STABLE.TUBE FEEDING AND IV INFUSING.WD. CARE DONE.
[2020-11-11 20:00] VITALS: BP 137/59
--- NOTE | 2020-11-11 20:00 | NUR ---
PERIODICALS CLERK NOTE PT IN BED WITH EYES CLOSED. A/O X 1 NON VERBAL. NO DISTRESS OR DISCOMFORT NOTED. NO S/S OF PAIN NOTED. GTF GLUCERNA INFUSING AT 40 ML/HR, 0 ML RESIDUAL NOTED. KEPT HOB ELEVATED. ON TELE SR 72, DRESSING ON WOUND I/C/D. IVF D5W WITH 40 MEQ INFUSING AT 100 ML/HR, NO S/S OF INFILTRATION NOTED. KEPT HIM DRY AND CLEAN. REPOSITION HIM FOR SKIN MANAGEMENT. F/C INTACT AND PATENT DRAINING YELLOWISH COLOR URINE. ALL NEEDS ATTENDED. CONTINUE TO MONITOR HIM.
[2020-11-11 21:26] VITALS: BP 137/59
[2020-11-12] VITALS: BP 113/69
[2020-11-12] MEDS: BLOOD SUGAR DIAGNOSTIC 1 EACH STRIP IN SCH ×3 (00:20→12:49)
--- NOTE | 2020-11-12 00:40 | NUR ---
MS RN NOTE DONNA SUPERVISOR TANK HOUSE CALLED AND INFORMED THAT IVF D5W WITH 40 MEQ IS RAN OUT AND NURSING FACILITIES COORDINATOR DON'T HAVE THE REPLACEMENT. ONLY ONE SHE HAS IS D5 1/2 NS WITH 40 MEQ KCL . SUPERVISOR TANK HOUSE CHANGED THE ORDER, ORDER NOTED AND CARRIED OUT.
[2020-11-12] MEDS ORDERED: Potassium Chloride 40 MEQ in IV D5/0.45 NACL 1,000 ML IV PRN (01:00)
[2020-11-12 01:34] VITALS: BP 113/69
[2020-11-12] MEDS: GLUCERNA 1.2 1,000 ML BOTTLE NG PRN (01:48)
[2020-11-12 04:00] VITALS: BP 97/50
[2020-11-12] MEDS: MEROPENEM 500 MG in IV NS 0.9% 50 ML IV SCH (04:23)
[2020-11-12 05:23] VITALS: BP 97/50
--- NOTE | 2020-11-12 06:49 | NUR ---
DIRECTOR OF RECRUITING NOTE PT IN BED ASLEEP, NO DISTRESS OR DISCOMFORT NOTED. AROUSABLE, DENIES PAIN. GTF INFUSING WELL, 0 ML RESIDUAL NOTED. ALSO IVF INFUSING WELL, NO S/S OF INFILTRATION NOTED. F/C INTACT AND PATENT DRAINING WELL. SIDE RAILS UP X 2 AND CALL LIGHT WITHIN REACH. WILL ENDORSE TO DAY SHIFT NURSE FOR CONTINUE TO CARE.
[2020-11-12 07:50] LABS: CALCIUM, SERUM 7.8 mg/dL (8.5-10.1); CREATININE 1.3 mg/dL (0.6-1.3); POTASSIUM 3.2 mmol/L (3.5-5.1)
[2020-11-12 08:00] VITALS: BP 103/54
--- NOTE | 2020-11-12 08:30 | NUR ---
RECEIVED PT. IN AM OBTUNDED,VS STABLE,IV AND TUBE FEEDING INFUSING.F/CATH WITH GOOD OUTPUT.
[2020-11-12 09:30] LABS: BASOPHILS # (AUTO) 0.1 /CMM (0.0-0.2); BASOPHILS % (AUTO) 0.4 % (0.0-2.0); EOSINOPHILS % (AUTO) 2.2 % (0.0-6.0); HEMATOCRIT 22 % (39-51); HEMOGLOBIN 7.1 g/dL (13.5-17.5); LYMPHOCYTES # (AUTO) 2.2 /CMM (0.8-4.8); LYMPHOCYTES % (AUTO) 14.5 % (20.0-44.0); MEAN CORPUSCULAR HGB CONC 32 g/dl (31.0-36.0); MEAN CORPUSCULAR VOLUME 87 fL (80-96); MONOCYTES # (AUTO) 1.1 /CMM (0.1-1.30); MONOCYTES % (AUTO) 6.9 % (2.0-12.0); NEUTROPHILS # (AUTO) 11.7 /CMM (1.8-8.9); PLATELET COUNT (AUTO) 267 /CMM (150-450); RED BLOOD CELL COUNT(AUTO) 2.56 MIL/uL (4.5-6.0); WHITE BLOOD COUNT (AUTO) 15.4 K/uL (4.3-11.0)
[2020-11-12] MEDS: PANTOPRAZOLE 40 MG/PACK PACK GT SCH (10:11)
[2020-11-12] MEDS: SILVER SULFADIAZINE CREAM 25 GM TUBE TP SCH (10:12)
[2020-11-12] MEDS: DAKINS QUARTER STRENGTH (0.125%) 480 ML BOTTLE TOP SCH (10:12)
--- NOTE | 2020-11-12 14:30 | NUR ---
PT. FIGHTING WITH ATTEMPT TO TAKE PHOTOSSO NOT TAKEN.
--- NOTE | 2020-11-12 16:30 | NUR ---
REPORT CALLED TO FACILITY FOR DISCHARGE.SUPPLIES SENT WITH PT.ALL PAPERS SIGND.REPORT TO TRANSITIONAL CARE MANAGER.TAKEN TO FACILITY VIA AMBULANCE.
== END 2020-11-12 16:40 | DRG 853 ==
LOC: ER 18:44 → TRANSITION 20:49 → ICU 11-04 11:13 → TELE 11-06 12:19
PROVIDERS: ADMIT Nurse Practitioner Acute Care; ATTEND Internal Medicine
PROC: 02HV33Z Insertion of Infusion Device into Superior Vena Cava, Percutaneous Approach (ICD-10-PCS; 2020-11-02)
PROC: B548ZZA Ultrasonography of Superior Vena Cava, Guidance (ICD-10-PCS; 2020-11-02)
PROC: 0QB10ZZ Excision of Sacrum, Open Approach (ICD-10-PCS; principal; 2020-11-06)
PROC: 30233N1 Transfusion of Nonautologous Red Blood Cells into Peripheral Vein, Percutaneous Approach (ICD-10-PCS; 2020-11-07)
DX: A41.9 Sepsis, unspecified organism (principal); L89.154 Pressure ulcer of sacral region, stage 4; J96.01 Acute respiratory failure with hypoxia; I21.A1 Myocardial infarction type 2; J15.6 Pneumonia due to other Gram-negative bacteria; R65.21 Severe sepsis with septic shock; J96.02 Acute respiratory failure with hypercapnia; R53.2 Functional quadriplegia; G92 Toxic encephalopathy; N17.0 Acute kidney failure with tubular necrosis; N39.0 Urinary tract infection, site not specified; D68.59 Other primary thrombophilia; F02.81 Dementia in other diseases classified elsewhere, unspecified severity, with behavioral disturbance; J98.11 Atelectasis; E87.0 Hyperosmolality and hypernatremia; L97.429 Non-pressure chronic ulcer of left heel and midfoot with unspecified severity; L97.419 Non-pressure chronic ulcer of right heel and midfoot with unspecified severity; K56.7 Ileus, unspecified; T83.018A Breakdown (mechanical) of other urinary catheter, initial encounter; Z88.8 Allergy status to other drugs, medicaments and biological substances; Z91.041 Radiographic dye allergy status; Z91.013 Allergy to seafood; Z79.51 Long term (current) use of inhaled steroids; Z79.82 Long term (current) use of aspirin; Z79.899 Other long term (current) drug therapy; Z79.01 Long term (current) use of anticoagulants; B96.89 Other specified bacterial agents as the cause of diseases classified elsewhere; N13.9 Obstructive and reflux uropathy, unspecified; E78.5 Hyperlipidemia, unspecified; E87.6 Hypokalemia; G30.9 Alzheimer's disease, unspecified; I10 Essential (primary) hypertension; E03.9 Hypothyroidism, unspecified; F20.9 Schizophrenia, unspecified; Y95 Nosocomial condition; Z86.73 Personal history of transient ischemic attack (TIA), and cerebral infarction without residual deficits; Z93.1 Gastrostomy status; D63.8 Anemia in other chronic diseases classified elsewhere; R13.10 Dysphagia, unspecified; K21.9 Gastro-esophageal reflux disease without esophagitis; Z74.01 Bed confinement status; Z91.81 History of falling; Z86.16 Personal history of COVID-19; Z87.442 Personal history of urinary calculi; Z20.822 Contact with and (suspected) exposure to COVID-19; M20.42 Other hammer toe(s) (acquired), left foot; M20.41 Other hammer toe(s) (acquired), right foot; K76.89 Other specified diseases of liver; E11.621 Type 2 diabetes mellitus with foot ulcer; E11.40 Type 2 diabetes mellitus with diabetic neuropathy, unspecified; E11.622 Type 2 diabetes mellitus with other skin ulcer; I70.0 Atherosclerosis of aorta; N32.89 Other specified disorders of bladder; Y84.6 Urinary catheterization as the cause of abnormal reaction of the patient, or of later complication, without mention of misadventure at the time of the procedure; Y92.129 Unspecified place in nursing home as the place of occurrence of the external cause
CPT/HCPCS: 36415; 36600; 71045-TC; 74018; 80048-TC; 80053-TC; 80061-TC; 80076-TC; 80202-TC; 81001; 82550-TC; 82553; 82803-TC; 82962-TC; 83605-TC; 83735-TC; 83970; 84100-TC; 84155; 84165; 84484-TC; 85025-TC; 85730-TC; 86850-TC; 87040-TC; 87070-TC; 87081-TC; 87086-TC; 87186-TC; 94660; 99082-TC; A6253; A6403; C1751; C9113; C9803; G0378; J1815; J2185; J2405; J3370; J3475; J3480; J3490; J7030; J7040; J7050; J7060; J7070; P9016-BL; U0003

== ENCOUNTER 2020-11-27 02:22 | Inpatient (IN) | payer MEDICARE, OTHER ==
[~2020-11-27] VITALS: Ht 177.8 cm; Wt 94.3 kg
[~2020-11-27 02:22] MED LIST: ACET-868 PO; ASCO500T87 PO; ASPI-1169 PO; ATOR10TA PO; CHOL100040 PO; CRAN3875 PO; CRAN425C6 PO; DOCU-141 PO; ENOX40DI9 SQ; FERR325T23 PO; IPRA3AMP23 IH; LEVO75TA7 PO; LISI40TA13 PO; MULT-447 PO; PANT40TA2 PO
--- NOTE | 2020-11-27 02:35 | NUR ---
pt has cagle cath
--- NOTE | 2020-11-27 02:35 | NUR ---
pt bibems for ab labs from [facility]. K 2.3 and hemoglobin 6.8. Pt aaox0. pt breathing evenly and unlabored. pt 1.5L via nc. Pt saturating at 100%. pt has picc line in rt upper arm, g tube, swelling in rt upper arm and BLE. Pt has Bilateral heel wounds that are covered and a wound on his left leg that also has a dressing. Pt has sacral wound. pt skin warm and dry. pt made comfortable with blanket and call light within reach
[2020-11-27] MEDS ORDERED: IV PREMIX D5 1/2NS + KCL 1,000 ML IV ONE ×2 (03:00→03:20)
[2020-11-27] MEDS ORDERED: PANTOPRAZOLE 80 MG in IV NS 0.9% 100 ML IV ONE (03:00)
--- NOTE | 2020-11-27 03:07 | NUR ---
blood obtained and sent to lab
--- NOTE | 2020-11-27 03:08 | NUR ---
covid swabs sent to lab
--- NOTE | 2020-11-27 03:10 | NUR ---
xray at bedside
[2020-11-27] MEDS ORDERED: PANTOPRAZOLE 40 MG VIAL ONE (03:11)
--- NOTE | 2020-11-27 03:15 | NUR ---
cagle flushed and found to be patent
[2020-11-27 03:20] LABS: BASOPHILS # (AUTO) 0.1 /CMM (0.0-0.2); BASOPHILS % (AUTO) 0.7 % (0.0-2.0); EOSINOPHILS % (AUTO) 4.4 % (0.0-6.0); LYMPHOCYTES # (AUTO) 3.2 /CMM (0.8-4.8); LYMPHOCYTES % (AUTO) 29.8 % (20.0-44.0); MEAN CORPUSCULAR HGB CONC 33 g/dl (31.0-36.0); MEAN CORPUSCULAR VOLUME 86 fL (80-96); MONOCYTES # (AUTO) 1.1 /CMM (0.1-1.30); MONOCYTES % (AUTO) 10.1 % (2.0-12.0); NEUTROPHILS # (AUTO) 5.9 /CMM (1.8-8.9); PLATELET COUNT (AUTO) 249 /CMM (150-450); RED BLOOD CELL COUNT(AUTO) 2.32 MIL/uL (4.5-6.0); WHITE BLOOD COUNT (AUTO) 10.8 K/uL (4.3-11.0)
[2020-11-27 03:41] LABS: OCCULT BLOOD STOOL NEGATIVE (NEGATIVE)
[2020-11-27 03:44] LABS: HEMATOCRIT 20 % (39-51); HEMOGLOBIN 6.5 g/dL (13.5-17.5)
--- NOTE | 2020-11-27 03:58 | NUR ---
lab called with critical 1.9 potassium. made aware
[2020-11-27 03:59] LABS: ALBUMIN 1.6 g/dL (3.4-5.0); BILIRUBIN,DIRECT 0.1 mg/dL (0.0-0.2); BILIRUBIN,TOTAL 0.3 mg/dL (0.2-1.0); CREATININE 1.3 mg/dL (0.6-1.3); TOTAL PROTEIN, SERUM 6.8 g/dL (6.4-8.2)
[2020-11-27 04:04] LABS: CALCIUM, SERUM 7.7 mg/dL (8.5-10.1); POTASSIUM 1.9 mmol/L (3.5-5.1)
[2020-11-27] MEDS ORDERED: HYDROCODONE/APAP 5/325MG TABLET PO PRN (04:30)
[2020-11-27] MEDS ORDERED: MAGNESIUM HYDROXIDE 30 ML UDC PO PRN (04:30)
[2020-11-27] MEDS ORDERED: MAG HYDROX/AL HYDROX/SIMETH 30 ML UDC PO PRN (04:30)
[2020-11-27] MEDS ORDERED: ZOLPIDEM TARTRATE 5 MG TABLET PO PRN (04:30)
[2020-11-27] MEDS ORDERED: Z GUARD REMEDY 2 OZ OINT TP PRN (04:30)
[2020-11-27] MEDS ORDERED: ONDANSETRON HCL/PF 4 MG/2 ML VIAL IVP PRN (04:30)
[2020-11-27] MEDS ORDERED: ACETAMINOPHEN 325 MG TABLET PO PRN (04:30)
[2020-11-27 04:31] LABS: EOSINOPHILS % (MANUAL) 7 % (0-4); LYMPHOCYTES % (MANUAL) 25 % (16-48); MONOCYTES % (MANUAL) 13 % (0-11.0); NEUTROPHILS % (MANUAL) 55 (42-76)
[2020-11-27] MEDS ORDERED: Medication Not On Formulary EA (Ipratropium/Albuterol Sulfate (Duoneb 2.5-0.5 Mg/3 Ml So IH PRN (05:00)
[2020-11-27 05:31] LABS: MAGNESIUM 1.9 mg/dL (1.8-2.4); PHOSPHORUS 3.2 mg/dL (2.5-4.9)
--- NOTE | 2020-11-27 07:06 | NUR ---
BLOOD INFUSION STARTED AT 0650. BLOOD VERIFIED WITH DELIA LEMOS. AFTER 15MIN OF INFUSING, VS REMAINED STABLE, NO ADVERSE REACTION NOTED.
[2020-11-27] MEDS ORDERED: POTASSIUM CL. PREMIX PERIPHER. 50 ML ONE ×4 (07:17→10:13)
[2020-11-27] MEDS: POTASSIUM CL. PREMIX PERIPHER. 50 ML IV SCH ×4 (07:25→10:40)
--- NOTE | 2020-11-27 07:29 | NUR ---
Note gamal in EDM - 11/27/20 at 0730 by [facility] VERIFIED MEDICATION. FIRST DOSE INFUSED AT 0730. PT TOLERATED WELL. WILL ENDORSE TO MOIRA RN.
--- NOTE | 2020-11-27 07:29 | NUR ---
PHARMACY VERIFIED MEDICATION. FIRST BAG OF KCL 10MEQ INFUSED AT 0730. PT TOLERATED WELL. WILL ENDORSE TO ONCOMING RN.
[2020-11-27] MEDS ORDERED: PANTOPRAZOLE 40 MG TABLET.DR PO SCH (07:30)
[2020-11-27] MEDS ORDERED: LEVOTHYROXINE SODIUM 75 MCG TABLET PO SCH (07:30)
--- NOTE | 2020-11-27 07:35 | NUR ---
endorsement received from keena cifuentes for [facility]
--- NOTE | 2020-11-27 07:36 | NUR ---
ENDORSED MARILYNN TO DELIA AVILA
[2020-11-27] MEDS ORDERED: ALBUTEROL SULFATE INH 18 GM HFA.AER.AD IH PRN (08:30)
[2020-11-27] MEDS ORDERED: IPRATROPIUM BROMIDE 14 GM INHALER (or 12.9 GM) IH PRN (08:30)
[2020-11-27] MEDS ORDERED: PANTOPRAZOLE 40 MG TABLET.DR PO ONE (08:45)
[2020-11-27] MEDS ORDERED: Medication Not On Formulary EA (Cranberry Extract (Cranberry) 425 MG) PO SCH (09:00)
[2020-11-27] MEDS ORDERED: ASPIRIN 81 MG TAB.CHEW PO SCH (09:00)
[2020-11-27] MEDS ORDERED: ASCORBIC ACID 500 MG TABLET PO SCH (09:00)
[2020-11-27] MEDS ORDERED: Medication Not On Formulary EA (Cran/Vitc/Mannose/Inulin/Brom (Uti-Stat Liquid) 3,875 MG PO SCH (09:00)
[2020-11-27] MEDS ORDERED: CHOLECALCIFEROL 1,000 UNIT TABLET (VIT D3) PO SCH (09:00)
[2020-11-27] MEDS ORDERED: MULTIVIT W/MINERALS 1 TAB TABLET PO SCH (09:00)
[2020-11-27] MEDS ORDERED: CHOLECALCIFEROL 1,000 UNIT TABLET (VIT D3) ONE (09:06)
[2020-11-27] MEDS ORDERED: MULTIVIT W/MINERALS 1 TAB TABLET ONE (09:06)
[2020-11-27] MEDS ORDERED: ENOXAPARIN SODIUM 40 MG/0.4 ML DISP.SYRIN SQ ONE (09:06)
[2020-11-27] MEDS ORDERED: ASPIRIN 81 MG TAB.CHEW ONE (09:07)
[2020-11-27] MEDS ORDERED: ASCORBIC ACID 500 MG TABLET ONE (09:07)
--- NOTE | 2020-11-27 09:25 | NUR ---
BLOOD TRANSFUSION COMPLETED, VS REMAINED STABLE, NO ADVERSE REACTION NOTED.
[2020-11-27] MEDS: FERROUS SULFATE (325 MG) 325 MG/TAB TABLET PO SCH (09:30)
[2020-11-27] MEDS: ENOXAPARIN SODIUM 40 MG/0.4 ML DISP.SYRIN SQ SCH (09:51)
--- NOTE | 2020-11-27 10:10 | NUR ---
DR GIMENEZ WILL SPEAK TO DR BALL REGARDING ERCP
--- NOTE | 2020-11-27 10:12 | NUR ---
DR GIMENEZ AT BEDSIDE, RECEIVED VERBAL ORDER OF PROTONIX 40MG IVP DAILY. CARRIED OUT.
[2020-11-27 10:55] LABS: THYROID STIMULATING HORMONE 11.21 uIU/mL (0.358-3.74)
[2020-11-27] MEDS ORDERED: POTASSIUM CHLORIDE 20 MEQ TAB.PRT.SR PO SCH (11:00)
[2020-11-27] MEDS ORDERED: POTASSIUM CHLORIDE 20 MEQ POWDER PACKET ONE ×2 (11:32→11:58)
[2020-11-27] MEDS: POTASSIUM CHLORIDE 20 MEQ POWDER PACKET PO SCH ×5 (11:35→15:36)
--- NOTE | 2020-11-27 15:52 | NUR ---
GOT BED 116
--- NOTE | 2020-11-27 17:20 | NUR ---
ATTEMPTED TO GIVE REPORT, PER UNIT, REPORT AND TRANSFER DURING SUPERVISOR POLISHING
--- NOTE | 2020-11-27 18:20 | NUR ---
PATIENT CLEANED, LINEN AND HOSP GOWN CHANGED. PATIENT NOTED TO HAVE BOWEL MOVEMENT, LARGE WATERY BROWN STOOL.
--- NOTE | 2020-11-27 18:28 | NUR ---
SACROCOCCYX PRESSURE ULCER NOTED. [id number] DEPTH OF 4CM. CLEANSED W NS, PAT DRY, APPLIED WET DRESSING, APPLIED ZINC OXIDE, COVERED W FOAM DRESSING.
--- NOTE | 2020-11-27 18:33 | NUR ---
URINE OUTPUT OF 2500CC NOTED.
--- NOTE | 2020-11-27 18:43 | NUR ---
REPORT GIVEN TO ETHEL LIN OF TELE UNIT
--- NOTE | 2020-11-27 19:10 | NUR ---
RN NOTES RECEIVED PATIENT FROM ER VIA GURNEY ACCOMPANIED BY 2 ER STAFF AND TRANSFERRED TO BED VIA 2 PERSON ASSIST. PT IS ALERT AND ORIENTED X0. PT ON 2L OF O2 VIA NC WITH RESPIRATIONS EVEN AND UNLABORED. COMPREHENSIVE PHYSICAL ASSESSMENT AND PATIENT CARE DONE. CALL LIGHT WITHIN REACH, SAFETY MEASURES AND ISOLATION PRECAUTION IN PLACE, WILL CONTINUE MONITOR AND ASSESS THROUGHOUT THE SHIFT. WILL CARRY OUT MD ORDERS ACCORDINGLY. MALT SPECIFICATIONS CONTROL ASSISTANT MADE AWARE OF PATIENT ADMISSION TO UNIT.
[2020-11-27 20:00] VITALS: BP 106/50
--- NOTE | 2020-11-27 21:50 | NUR ---
"RN NOTES COLACE/ DOCUSATE SODIUM 200MG | 2 TABS DUE @ 2200 NOT GIVEN, DURING ADMISSION PT NOTED TO HAVE LOOSE STOOL SMALL IN AMOUNT. KILN CHARGER MADE AWARE. WILL CONTINUE TO MONITOR AND ASSESS THROUGHOUT THE SHIFT."
[2020-11-27] MEDS ORDERED: DOCUSATE SODIUM 100 MG CAPSULE PO SCH (22:00)
[2020-11-27] MEDS ORDERED: ATORVASTATIN 10 MG TABLET PO SCH (22:00)
--- NOTE | 2020-11-27 23:00 | NUR ---
RN NOTES PATIENT REMAINS IN NO ACUTE RESPIRATORY DISTRESS AT THIS TIME, NO CHANGES TO CONDITION/STATUS. SUPERVISOR SEWING ROOM WELL AWARE. WILL CONTINUE TO MONITOR AND REASSESS FOR ANY CHANGES THROUGHOUT THE SHIFT
[2020-11-28] VITALS (7 sets, daily range): BP systolic 100–113; BP diastolic 43–65
--- NOTE | 2020-11-28 01:15 | NUR ---
RN NOTES STARTED TUBE FEEDING OF GLUCERNA 1.2 @40CC/HR ORDERED. LAPEL PADDER MADE AWARE. WILL CONTINUE TO ASSESS AND MONITOR THROUGHOUT THE SHIFT.
[2020-11-28] MEDS: GLUCERNA 1.2 1,000 ML BOTTLE NG PRN ×2 (01:16→22:22)
--- NOTE | 2020-11-28 03:00 | NUR ---
RN NOTES NO CHANGES IN PATIENT CONDITION AT THIS TIME PATIENT VITALS STABLE, NO SIGNS OF ACUTE RESPIRATORY DISTRESS. PATIENT STILL IN BED SLEEPING COMFORTABLY. NO COMPLAINTS OF PAIN OR ANY DISCOMFORT AT THIS TIME. WILL CONTINUE TO MONITOR AND REASSESS FOR ANY CHANGES THROUGHOUT THE SHIFT.
--- NOTE | 2020-11-28 04:10 | NUR ---
DELIA NOTES NOTED PT'S TEMP 100@0400. PRN MEDICATION GIVEN AND COOLING MEASURES PROVIDED. EVERARDO LIN MADE AWARE. WILL RE-EVALUATE AFTER 30 MINUTES- 1 HOUR. WILL CONTINUE TO MONITOR AND ASSESS THROUGHOUT THE SHIFT. Addendum: 11/28/20 at 0549 by DENIS DOMINGO RN @0500 TEMP IS AT 99 DEGREES, WILL CONTINUE TO PROVIDE COOLING MEASURES. EVERARDO LIN MADE AWARE. WILL CONTINUE TO MONITOR AND ASSESS THROUGHOUT THE SHIFT.
--- NOTE | 2020-11-28 06:51 | NUR ---
RN CLOSING NOTE: PATIENT REMAINS IN ROOM RESTING COMFORTABLY.NO SIGNS OF RESPIRATORY DISTRESS PATIENT STILL ON 2L OF 02 VIA NC;TOLERATING WELL SATURATING @ >95% SP02. SAFETY MEASURES IMPLEMENTED, BED IN LOWEST POSITION, LOCKED, SIDE RAILS UP, CALL LIGHT WITHIN REACH. ALL NEEDS AND ORDERS ADDRESSED DURING THE SHIFT. IV ACCESS MAINTAINED INTACT, SECURED AND FLUSHING WELL. ALL DUE MEDS GIVEN ORDERED & SCHEDULED ; PATIENT TOLERATED WELL. PATIENT KEPT CLEAN AND COMFORTABLE WITHIN THE SHIFT. PATIENT ENDORSED TO INCOMING SHIFT RN WITH STABLE VITAL SIGN AND FOR CONTINUITY OF CARE.
[2020-11-28 07:20] LABS: BASOPHILS # (AUTO) 0.1 /CMM (0.0-0.2); BASOPHILS % (AUTO) 0.7 % (0.0-2.0); EOSINOPHILS % (AUTO) 2.6 % (0.0-6.0); HEMATOCRIT 22 % (39-51); HEMOGLOBIN 7.4 g/dL (13.5-17.5); LYMPHOCYTES # (AUTO) 2.1 /CMM (0.8-4.8); LYMPHOCYTES % (AUTO) 25.2 % (20.0-44.0); MEAN CORPUSCULAR HGB CONC 33 g/dl (31.0-36.0); MEAN CORPUSCULAR VOLUME 88 fL (80-96); MONOCYTES % (AUTO) 11.8 % (2.0-12.0); NEUTROPHILS % (AUTO) 59.7 % (43.0-81.0); PLATELET COUNT (AUTO) 235 /CMM (150-450); RED BLOOD CELL COUNT(AUTO) 2.51 MIL/uL (4.5-6.0); WHITE BLOOD COUNT (AUTO) 8.4 K/uL (4.3-11.0)
[2020-11-28] MEDS ORDERED: MAG HYDROX/AL HYDROX/SIMETH 30 ML UDC NG PRN (07:32)
[2020-11-28] MEDS ORDERED: MAGNESIUM HYDROXIDE 30 ML UDC NG PRN (07:33)
--- NOTE | 2020-11-28 07:51 | NUR ---
RN OPENING NOTE PATIENT IS IN BED WITH HOB AT SEMI FOWLERS POSITION. PATIENT IS AOX1 AND NONVERBAL. NC APPLIED AND RUNNING 2L OF O2. SR NOTED ON MONITOR. RAYMUNDO CATHETER IS IN PLACE. GT TUBE IS IN PLACE AND RUNNING APPROPRIATE FEEDING. MAI PICC LINE IS PATENT, INTACT, AND HAS NO SIGNS OF INFILTRATION. L POST THIGH, L POST LEG, R HEEL, L HEEL, AND SACRAL WOUNDS NOTED. BED IS LOCKED IN THE LOWEST POSITION, 3 GUARD RAILS RAISED, CALL ELIZONDO WITHIN REACH, AND ALL HOSPITAL SAFETY PRECAUTIONS ARE BEING FOLLOWED. WILL CONTINUE TO MONITOR THROUGHOUT SHIFT.
[2020-11-28 07:56] LABS: BILIRUBIN,TOTAL 0.3 mg/dL (0.2-1.0); CALCIUM, SERUM 7.8 mg/dL (8.5-10.1); MAGNESIUM 1.7 mg/dL (1.8-2.4); PHOSPHORUS 2.6 mg/dL (2.5-4.9); TOTAL PROTEIN, SERUM 6.6 g/dL (6.4-8.2)
[2020-11-28] MEDS ORDERED: ACETAMINOPHEN 650 MG/20.3 ML UDC NG PRN (08:00)
[2020-11-28 08:02] LABS: ALBUMIN 1.4 g/dL (3.4-5.0); POTASSIUM 2.4 mmol/L (3.5-5.1)
[2020-11-28] MEDS: MULTIVIT W/MINERALS 1 TAB TABLET NG SCH (08:05)
[2020-11-28] MEDS: PANTOPRAZOLE 40 MG/PACK PACK NG SCH (08:05)
[2020-11-28] MEDS: CHOLECALCIFEROL 1,000 UNIT TABLET (VIT D3) NG SCH (08:05)
[2020-11-28] MEDS: FERROUS SULFATE (325 MG) 325 MG/TAB TABLET PO SCH (08:05)
[2020-11-28] MEDS: ASCORBIC ACID 500 MG TABLET NG SCH (08:06)
[2020-11-28] MEDS: ENOXAPARIN SODIUM 40 MG/0.4 ML DISP.SYRIN SQ SCH (08:06)
[2020-11-28] MEDS ORDERED: POTASSIUM CHLORIDE 20 MEQ TAB.PRT.SR PO SCH (09:00)
[2020-11-28] MEDS: Magnesium 1GM/D5W 100ML PREMIX 100 ML IV SCH ×2 (09:13→10:11)
--- NOTE | 2020-11-28 09:30 | NUR ---
LOGISTICS SUPPLY OFFICER NOTE LOVENOX HELD DUE TO H/H OF 7.4 AND 22 TODAY 2/5 AND H/H OF 6.5 AND 20 YESTERDAY 2/4.
--- NOTE | 2020-11-28 09:38 | NUR ---
MICA MINER BLASTING NOTE FEEDING RATE INCREASED TO 65 ML/HR. WILL CONTINUE TO MONITOR.
[2020-11-28] MEDS: POTASSIUM CHLORIDE 20 MEQ POWDER PACKET GT SCH ×4 (10:11→13:04)
--- NOTE | 2020-11-28 10:26 | NUR ---
WOUND CARE CONSULT: REVIEWED CHART, NURSING DOCUMENTATION AND PHOTOS WHICH INDICATE DEEP TISSUE INJURY IN EVOLUTION TO LEFT THIGH, SACRAL STAGE 4 ULCER AND LOWER EXTREMITY WOUNDS, ALL PRESENT ON ADMISSION. RECOMMEND SURGICAL AND DPM CONSULTS. DR MELISA LEYVA AND DR WILLINGHAM NOTIFIED OF CONSULT REQUESTS. RECOMMENDATIONS MADE FOR SACRAL AND THIGH WOUNDS AND FOR SKIN PROTECTION. DISCUSSED WITH NURSING STAFF. DEFER TO DPM FOR LOWER EXTREMITIES. MD IN AGREEMENT WITH PLAN OF CARE. FIRST STEP LOW AIRLOSS MATTRESS IS ON ORDER.
--- NOTE | 2020-11-28 12:57 | NUR ---
FAMILY REUNIFICATION SPECIALIST NOTE INCREASED PATIENT'S O2 TO 3L NC. MONITOR READS 97% O2. WILL CONTINUE TO MONITOR.
--- NOTE | 2020-11-28 15:18 | NUR ---
PROFESSOR OF FRENCH NOTE SPOKE TO PATIENT'S SON AND OBTAINED CONSENT VIA TELEPHONE FOR WOUND DEBRIDEMENT. SECOND RN VERIFIED.
[2020-11-28] MEDS: DAKINS QUARTER STRENGTH (0.125%) 480 ML BOTTLE TOP SCH (15:45)
--- NOTE | 2020-11-28 16:49 | NUR ---
ELECTRON MICROSCOPIST NOTE ENDORSED CARE TO DELIA NAZARIO IN 3W. DELIVERED PATIENT TO ROOM 308 STABLE ON 3L O2 VIA NC. PATIENT IS AOX3;NONVERBAL. RAYMUNDO CATHETER IS IN PLACE. GTUBE IS IN PLACE. MAI PICC LINE IS INTACT. RN MADE AWARE OF SACRAL WOUND, BILATERAL HEEL WOUNDS, LEFT POSTERIOR THIGH DPI, LEFT POST LEG WOUND, AND MAI SKIN TEAR. RN ALSO MADE AWARE OF MOST RECENT LAB VALUES.
--- NOTE | 2020-11-28 17:00 | NUR ---
tele head boys tennis coach: notes received pt in from tele 1 via bed accompanied by 2 staff, bedside report received. pt with eyes open, but non-verbal. on g-tube feeding. f/c to gravity. hob elevated. oriented to room and surroundings. vss. will continue to monitor.
--- NOTE | 2020-11-28 19:10 | NUR ---
tele environmental health inspector: notes bedside report given to jerson (esau) for continuity of care.
--- NOTE | 2020-11-28 19:57 | NUR ---
FELTING MACHINE OPERATOR HELPER OPENING NOTES PATIENT A/O X1 NONVERBAL; OPENS EYES TO NAME. ON O2 3LPM VIA NASAL CANNULA; TOLERATING WELL. ON EXTERNAL CARDIAC MONITORING; READS SR AND HR AT 90'S. PICC LINE ON MAI; PATENT AND INTACT. GTUBE PEG PATENT AND INTACT; GLUCERNA 1.2 @ 40ML/HR. ASPIRATION AND SAFETY MEASURES IN PLACE: BED LOCKED IN LOWEST POSITION; SIDE RAILS UP X2; CALL LIGHT WITHIN EASY REACH, HOB AT SEMI-FOWLERS POSITION. WILL CONTINUE TO MONITOR.
[2020-11-28] MEDS: DOCUSATE SODIUM LIQ 100 MG/10 ML UDC NG SCH (22:01)
[2020-11-29 04:00] VITALS: BP 108/45
[2020-11-29] MEDS ORDERED: *INSULIN REGULAR(HUMULIN R)HUM 100 UNIT/ML VIAL SQ PRN (05:30)
[2020-11-29] MEDS ORDERED: DEXTROSE 50%-WATER 50 ML DISP.SYRIN IV PRN (05:30)
[2020-11-29 06:35] LABS: BASOPHILS % (AUTO) 0.4 % (0.0-2.0); EOSINOPHILS % (AUTO) 2.1 % (0.0-6.0); HEMATOCRIT 22 % (39-51); HEMOGLOBIN 7.3 g/dL (13.5-17.5); LYMPHOCYTES # (AUTO) 2.3 /CMM (0.8-4.8); LYMPHOCYTES % (AUTO) 27.6 % (20.0-44.0); MEAN CORPUSCULAR HGB CONC 33 g/dl (31.0-36.0); MEAN CORPUSCULAR VOLUME 90 fL (80-96); MONOCYTES % (AUTO) 12.6 % (2.0-12.0); NEUTROPHILS # (AUTO) 4.7 /CMM (1.8-8.9); NEUTROPHILS % (AUTO) 57.3 % (43.0-81.0); PLATELET COUNT (AUTO) 247 /CMM (150-450); RED BLOOD CELL COUNT(AUTO) 2.47 MIL/uL (4.5-6.0); WHITE BLOOD COUNT (AUTO) 8.2 K/uL (4.3-11.0)
--- NOTE | 2020-11-29 06:40 | NUR ---
JOURNAL CLERK CLOSING NOTES PATIENT A/O X1 NONVERBAL; OPENS EYES TO NAME. ON O2 3LPM VIA NASAL CANNULA; TOLERATING WELL. ON EXTERNAL CARDIAC MONITORING; READS SR WITH BBB AND HR AT 67. PICC LINE ON MAI; PATENT AND INTACT. GTUBE PEG PATENT AND INTACT; GLUCERNA 1.2 @ 40ML/HR. RAYMUNDO CATHETER PATENT AND INTACT; DRAINING CLEAR YELLOW URINE WELL. ASPIRATION AND SAFETY MEASURES IN PLACE: BED LOCKED IN LOWEST POSITION; SIDE RAILS UP X2; CALL LIGHT WITHIN EASY REACH, HOB AT SEMI-FOWLERS POSITION. WILL ENDORSE MARILYNN TO ONCOMING RN.
[2020-11-29 07:30] LABS: BILIRUBIN,TOTAL 0.2 mg/dL (0.2-1.0); CALCIUM, SERUM 7.6 mg/dL (8.5-10.1); CREATININE 0.8 mg/dL (0.6-1.3); MAGNESIUM 1.8 mg/dL (1.8-2.4); PHOSPHORUS 2.1 mg/dL (2.5-4.9); TOTAL PROTEIN, SERUM 6.4 g/dL (6.4-8.2)
[2020-11-29] MEDS: BLOOD SUGAR DIAGNOSTIC 1 EACH STRIP IN SCH ×4 (07:30→22:33)
[2020-11-29] MEDS: LEVOTHYROXINE SODIUM 75 MCG TABLET NG SCH (07:31)
[2020-11-29] MEDS: PANTOPRAZOLE 40 MG/PACK PACK NG SCH (07:31)
--- NOTE | 2020-11-29 07:39 | NUR ---
FURNITURE RENTAL CONSULTANT OPENING NOTES RECEIVED PATIENT IN BED, ASLEEP. PATIENT ON OXYGEN THERAPY AT 3 LPM VIA NASAL CANULA; BREATHING EVEN AND UNLABORED; NO SOB NOTED. TELE MONITOR WITH A CURRENT READING OF SR WITH BBB. NO S/S OF PAIN SUCH FACIAL GRIMACING, MOANING OR GUARDING. MAI PICC LINE PRESENT AND INTACT. RAYMUNDO CATH IN PLACE DRAINING CLEAR YELLOW URINE. G-TUBE IN PLACE RUNNING GLUCERNA 1.2 @ 40 MLS/HR. SAFETY PRECAUTIONS IN PLACE; BED IN LOW POSITION AND LOCKED, RAILS UP X2, CALL LIGHT WITHIN REACH. WILL CONTINUE TO MONITOR PATIENT.
[2020-11-29 07:59] LABS: ALBUMIN 1.3 g/dL (3.4-5.0); POTASSIUM 2.7 mmol/L (3.5-5.1)
[2020-11-29 08:00] VITALS: BP 99/61
--- NOTE | 2020-11-29 08:05 | NUR ---
ACTIVATED SLUDGE ATTENDANT NOTES RECEIVED CALL FROM LAB WITH CRITICAL RESULTS FOR POTASSIUM OF 2.7 AND ALBUMIN OF 1.3 WILL NOTIFY
[2020-11-29] MEDS: ENOXAPARIN SODIUM 40 MG/0.4 ML DISP.SYRIN SQ SCH (09:00)
[2020-11-29] MEDS: HYDROGEL DRESSING 90 GM TUBE TP SCH (09:25)
[2020-11-29] MEDS: DAKINS QUARTER STRENGTH (0.125%) 480 ML BOTTLE TOP SCH (09:25)
[2020-11-29] MEDS: THERAHONEY GEL 1.5 OZ TUBE TP SCH (09:25)
[2020-11-29] MEDS ORDERED: POTASSIUM CL. PREMIX PERIPHER. 50 ML IV SCH (09:30)
[2020-11-29] MEDS: ASCORBIC ACID 500 MG TABLET NG SCH (09:47)
[2020-11-29] MEDS: MULTIVIT W/MINERALS 1 TAB TABLET NG SCH (09:47)
[2020-11-29] MEDS: FERROUS SULFATE (325 MG) 325 MG/TAB TABLET PO SCH (09:48)
[2020-11-29] MEDS: CHOLECALCIFEROL 1,000 UNIT TABLET (VIT D3) NG SCH (09:48)
[2020-11-29] MEDS: POTASSIUM CHLORIDE 20 MEQ POWDER PACKET GT SCH (09:52)
[2020-11-29] MEDS: POTASSIUM PHOSPHATE MM 7.5 MMOL in IV NS 0.9% 100 ML IV SCH ×2 (10:43→13:56)
[2020-11-29 16:00] VITALS: BP 104/58
--- NOTE | 2020-11-29 18:55 | NUR ---
CORPORATE RELATIONS DIRECTOR CLOSING NOTES PATIENT REMAINS IN BED, ASLEEP. PATIENT ON OXYGEN THERAPY AT 3 LPM VIA NASAL CANULA; BREATHING EVEN AND UNLABORED; NO SOB NOTED DURING SHIFT. NO S/S OF PAIN SUCH FACIAL GRIMACING, MOANING OR GUARDING DURING THE DAY. MAI PICC LINE PRESENT AND INTACT. RAYMUNDO CATH IN PLACE DRAINING CLEAR YELLOW URINE WITH A DAILY OUTPUT OF 550 MLS. G-TUBE IN PLACE RUNNING GLUCERNA 1.2 @ 40 MLS/HR. ALL NEEDS ATTENDED THROUGHOUT THE DAY. SAFETY PRECAUTIONS IN PLACE; BED IN LOW POSITION AND LOCKED, RAILS UP X2, CALL LIGHT WITHIN REACH. WILL ENDORSED TO WHITE SHOE EXAMINER NURSE.
[2020-11-29 20:00] VITALS: BP_SYST 126; BP_SYST 136; BP_DIAS 61
[2020-11-29] MEDS: DOCUSATE SODIUM LIQ 100 MG/10 ML UDC NG SCH (23:18)
[2020-11-30] MEDS: GLUCERNA 1.2 1,000 ML BOTTLE NG PRN (02:27)
[2020-11-30 07:08] LABS: BASOPHILS % (AUTO) 0.3 % (0.0-2.0); EOSINOPHILS % (AUTO) 3.1 % (0.0-6.0); HEMATOCRIT 22 % (39-51); HEMOGLOBIN 7.2 g/dL (13.5-17.5); LYMPHOCYTES # (AUTO) 2.2 /CMM (0.8-4.8); LYMPHOCYTES % (AUTO) 26.4 % (20.0-44.0); MEAN CORPUSCULAR HGB CONC 32 g/dl (31.0-36.0); MEAN CORPUSCULAR VOLUME 88 fL (80-96); MONOCYTES % (AUTO) 11.8 % (2.0-12.0); NEUTROPHILS # (AUTO) 4.8 /CMM (1.8-8.9); NEUTROPHILS % (AUTO) 58.4 % (43.0-81.0); PLATELET COUNT (AUTO) 250 /CMM (150-450); RED BLOOD CELL COUNT(AUTO) 2.53 MIL/uL (4.5-6.0); WHITE BLOOD COUNT (AUTO) 8.3 K/uL (4.3-11.0)
[2020-11-30] MEDS: BLOOD SUGAR DIAGNOSTIC 1 EACH STRIP IN SCH ×4 (07:29→22:54)
[2020-11-30] MEDS: PANTOPRAZOLE 40 MG/PACK PACK NG SCH (07:30)
[2020-11-30] MEDS: LEVOTHYROXINE SODIUM 75 MCG TABLET NG SCH (07:30)
[2020-11-30] MEDS: INSULIN REGULAR, HUMAN 100 UNIT/ML 3 ML VIAL SQ PRN (07:31)
[2020-11-30 07:36] LABS: CALCIUM, SERUM 7.7 mg/dL (8.5-10.1); CREATININE 0.7 mg/dL (0.6-1.3)
[2020-11-30 07:40] LABS: POTASSIUM 2.8 mmol/L (3.5-5.1)
--- NOTE | 2020-11-30 07:50 | NUR ---
MS/RN NOTE Lab reported critical lab values K 2.8 [address] Garcia, no new orders at this time.
--- NOTE | 2020-11-30 08:00 | NUR ---
MS/RN OPENING NOTE Received patient in bed, A&O x 0, nonverbal, opens eyes to tactile and verbal stimulation. No s/s of any pain/discomfort at this time. Breathing even and non-labored on 3L oxygen via NC, no SOB noted. No cardiac distress noted. MAI PICC line noted, patent and intact, and flushing well. Laura in place, draining clear yellow urine well. G-tube in place, patent and intact, running Glucerna 1.2 @ 40 ml/hr. Bed locked to its lowest position, side rails x 2 up, bed alarm on. Will continue with current medical management.
--- NOTE | 2020-11-30 08:01 | NUR ---
MS RN CLOSING NOTES PATIENT A/O X0 NONVERBAL; OPENS TO TOUCH. ON O2 3LPM VIA NASAL CANNULA; TOLERATING WELL. PICC LINE ON MAI; PATENT AND INTACT. GTUBE PEG PATENT AND INTACT; GLUCERNA 1.2 @ 40ML/HR. RAYMUNDO CATHETER PATENT AND INTACT; DRAINING CLEAR YELLOW URINE WELL. ASPIRATION AND SAFETY MEASURES IN PLACE: BED LOCKED IN LOWEST POSITION; SIDE RAILS UP X2; CALL LIGHT WITHIN EASY REACH, HOB AT SEMI-FOWLERS POSITION. WILL ENDORSE MARILYNN TO ONCOMING RN.
[2020-11-30 08:30] VITALS: BP 92/56
[2020-11-30] MEDS: ENOXAPARIN SODIUM 40 MG/0.4 ML DISP.SYRIN SQ SCH (09:00)
--- NOTE | 2020-11-30 09:00 | NUR ---
MS/RN NOTE Non-administered lovenox, since Hemoglobin 7.2 and Hematocrit 22. No s/s of bleeding noted.
[2020-11-30] MEDS: ASCORBIC ACID 500 MG TABLET NG SCH (09:37)
[2020-11-30] MEDS: POTASSIUM CHLORIDE 20 MEQ POWDER PACKET GT SCH (09:37)
[2020-11-30] MEDS: FERROUS SULFATE (325 MG) 325 MG/TAB TABLET PO SCH (09:37)
[2020-11-30] MEDS: CHOLECALCIFEROL 1,000 UNIT TABLET (VIT D3) NG SCH (09:37)
[2020-11-30] MEDS: MULTIVIT W/MINERALS 1 TAB TABLET NG SCH (09:37)
[2020-11-30] MEDS: HYDROGEL DRESSING 90 GM TUBE TP SCH (09:39)
[2020-11-30] MEDS: POTASSIUM CL. PREMIX PERIPHER. 50 ML IV SCH ×5 (09:40→13:48)
[2020-11-30] MEDS: DAKINS QUARTER STRENGTH (0.125%) 480 ML BOTTLE TOP SCH (09:41)
[2020-11-30] MEDS: THERAHONEY GEL 1.5 OZ TUBE TP SCH (09:42)
[2020-11-30] MEDS: POTASSIUM CHLORIDE 20 MEQ TAB.PRT.SR PO SCH ×4 (11:36→14:06)
[2020-11-30 16:07] VITALS: BP 99/65
--- NOTE | 2020-11-30 17:00 | NUR ---
MS/RN NOTE Asked Dr. Garcai for an order of ABG since CO2 level is 41, MD states "no need."
--- NOTE | 2020-11-30 18:30 | NUR ---
MS/RN CLOSING NOTE Patient resting in bed, A&O x 0, nonverbal, opens eyes to tactile and verbal stimulation. All needs met and attended to. No s/s of any pain/discomfort at this time. Breathing even and non-labored on 3L oxygen via NC, no SOB noted. No cardiac distress noted. MAI PICC line noted, patent and intact, and flushing well. Laura in place, draining clear yellow urine well. G-tube in place, patent and intact, running Glucerna 1.2 @ 40 ml/hr. Fall precautions maintained. Will endorse to hypo dipper nurse.
--- NOTE | 2020-11-30 18:53 | NUR ---
MS RN OPENING NOTES PATIENT A/O X0 NONVERBAL; OPENS EYES TO TOUCH. ON O2 3LPM VIA NASAL CANNULA; TOLERATING WELL. PICC LINE ON MAI; PATENT AND INTACT. GTUBE PEG PATENT AND INTACT; GLUCERNA 1.2 @ 40ML/HR. RAYMUNDO CATHETER DRAINING CLEAR YELLOW URINE; PATENT AND INTACT. NO S/S OF PAIN OR DISTRESS. ASPIRATION AND SAFETY MEASURES IN PLACE: BED LOCKED IN LOWEST POSITION; SIDE RAILS UP X2; CALL LIGHT WITHIN EASY REACH, HOB AT SEMI-FOWLERS POSITION. WILL CONTINUE CURRENT PLAN OF CARE.
[2020-11-30 20:00] VITALS: BP 113/59
[2020-11-30] MEDS: DOCUSATE SODIUM LIQ 100 MG/10 ML UDC NG SCH (22:54)
[2020-12-01] MEDS: GLUCERNA 1.2 1,000 ML BOTTLE NG PRN (04:46)
--- NOTE | 2020-12-01 07:00 | NUR ---
RN OPENING NOTE RECEIVED PT resting comfortably IN BED AT THIS TIME. AOX1. NO SOB NOTED, NO S/S OF ANY ACUTE DISTRESS NOTED, NO S/O PAIN AT THIS TIME, OR FACIAL GRIMACE NOTED. IV ACCESS NOTED IN RIGHT HAND G#22, INTACT PATENT AND FLUSHING WELL. RAYMUNDO CATHETER NOTED IN PLACE, DRAINING TO GRAVITY CLEAR, TEA COLORED URINE OUTPUT. ASPIRATIONS AND SAFETY PRECAUTIONS IN PLACE AND MAINTAINED AT ALL TIMES. BED IN LOWEST LOCKED POSITION, SIDE RAILS UP, HOB ELEVATED, TABLE AND CALL LIGHT WITHIN REACH. WILL CONTINUE TO MONITOR. Addendum: 12/01/20 at 1556 by PADMA BROWN RN RN OPENING NOTE RECEIVED PT RESTING COMFORTABLY IN BED AT THIS TIME. AOX1. NO SOB NOTED, NO S/S OF ANY ACUTE DISTRESS NOTED, NO S/O PAIN AT THIS TIME, OR FACIAL GRIMACE NOTED. MAI PICC LINE IN PLACE, RESISTANCE TO FLUSH. RAYMUNDO CATHETER NOTED IN PLACE, DRAINING TO GRAVITY CLEAR, YELLOW COLORED URINE OUTPUT. ASPIRATIONS AND SAFETY PRECAUTIONS IN PLACE AND MAINTAINED AT ALL TIMES. BED IN LOWEST LOCKED POSITION, SIDE RAILS UP, HOB ELEVATED, TABLE AND CALL LIGHT WITHIN REACH. WILL CONTINUE TO MONITOR.
[2020-12-01 07:10] LABS: BASOPHILS % (AUTO) 0.3 % (0.0-2.0); EOSINOPHILS % (AUTO) 2.4 % (0.0-6.0); HEMATOCRIT 23 % (39-51); HEMOGLOBIN 7.4 g/dL (13.5-17.5); LYMPHOCYTES # (AUTO) 2.7 /CMM (0.8-4.8); MEAN CORPUSCULAR HGB CONC 33 g/dl (31.0-36.0); MEAN CORPUSCULAR VOLUME 89 fL (80-96); MONOCYTES # (AUTO) 0.9 /CMM (0.1-1.30); MONOCYTES % (AUTO) 9.8 % (2.0-12.0); NEUTROPHILS # (AUTO) 5.5 /CMM (1.8-8.9); NEUTROPHILS % (AUTO) 58.5 % (43.0-81.0); PLATELET COUNT (AUTO) 248 /CMM (150-450); RED BLOOD CELL COUNT(AUTO) 2.56 MIL/uL (4.5-6.0); WHITE BLOOD COUNT (AUTO) 9.4 K/uL (4.3-11.0)
[2020-12-01 07:34] LABS: ALBUMIN 1.5 g/dL (3.4-5.0); BILIRUBIN,TOTAL 0.3 mg/dL (0.2-1.0); CALCIUM, SERUM 8.1 mg/dL (8.5-10.1); CREATININE 0.7 mg/dL (0.6-1.3); MAGNESIUM 1.6 mg/dL (1.8-2.4); PHOSPHORUS 2.8 mg/dL (2.5-4.9); POTASSIUM 3.7 mmol/L (3.5-5.1); TOTAL PROTEIN, SERUM 6.6 g/dL (6.4-8.2)
[2020-12-01] MEDS: BLOOD SUGAR DIAGNOSTIC 1 EACH STRIP IN SCH ×2 (07:54→12:08)
[2020-12-01] MEDS: INSULIN REGULAR, HUMAN 100 UNIT/ML 3 ML VIAL SQ PRN (07:55)
[2020-12-01 08:00] VITALS: BP 117/54
--- NOTE | 2020-12-01 08:03 | NUR ---
CRITICAL LAB FOR CARBON DIOXIDE 40, REPORTED BY [employer] AT THIS TIME. DR CARDONA MADE AWARE. NO NEW ORDERS AT THIS TIME. WILL CONTINUE TO MONITOR Addendum: 12/01/20 at 0831 by PADMA BROWN RN CRITICAL LAB FOR CARBON DIOXIDE 40, REPORTED BY [employer] AT THIS TIME. REPORT READ BACK. DR CARDONA MADE AWARE. NO NEW ORDERS AT THIS TIME. WILL CONTINUE TO MONITOR
--- NOTE | 2020-12-01 08:32 | NUR ---
MS RN CLOSING NOTES PATIENT A/O X0 NONVERBAL; OPENS TO TOUCH. ON O2 3LPM VIA NASAL CANNULA; TOLERATING WELL. PICC LINE ON MAI; PATENT AND INTACT. GTUBE PEG PATENT AND INTACT; GLUCERNA 1.2 @ 40ML/HR. RAYMUNDO CATHETER PATENT AND INTACT; DRAINING CLEAR YELLOW URINE WELL. ASPIRATION AND SAFETY MEASURES IN PLACE: BED LOCKED IN LOWEST POSITION; SIDE RAILS UP X2; CALL LIGHT WITHIN EASY REACH, HOB AT SEMI-FOWLERS POSITION. ENDORSED MARILYNN TO ONCOMING RN.
[2020-12-01] MEDS: POTASSIUM CHLORIDE 20 MEQ POWDER PACKET GT SCH (08:52)
[2020-12-01] MEDS: FERROUS SULFATE (325 MG) 325 MG/TAB TABLET PO SCH (08:52)
[2020-12-01] MEDS: MULTIVIT W/MINERALS 1 TAB TABLET NG SCH (08:52)
[2020-12-01] MEDS: ASCORBIC ACID 500 MG TABLET NG SCH (08:52)
[2020-12-01] MEDS: CHOLECALCIFEROL 1,000 UNIT TABLET (VIT D3) NG SCH (08:52)
[2020-12-01] MEDS: ENOXAPARIN SODIUM 40 MG/0.4 ML DISP.SYRIN SQ SCH (08:54)
[2020-12-01] MEDS: LEVOTHYROXINE SODIUM 75 MCG TABLET NG SCH (08:55)
[2020-12-01] MEDS: PANTOPRAZOLE 40 MG/PACK PACK NG SCH (08:55)
[2020-12-01] MEDS ORDERED: Magnesium 1GM/D5W 100ML PREMIX 100 ML IV SCH (09:30)
[2020-12-01] MEDS: THERAHONEY GEL 1.5 OZ TUBE TP SCH (10:10)
[2020-12-01] MEDS: DAKINS QUARTER STRENGTH (0.125%) 480 ML BOTTLE TOP SCH (10:10)
[2020-12-01] MEDS: HYDROGEL DRESSING 90 GM TUBE TP SCH (10:11)
--- NOTE | 2020-12-01 14:00 | NUR ---
PT PENDING DISCHARGE TO [facility], JAYNE LIZARRAGA([phone]), PT'S SON UPDATED. WILL CONTINUE WITH PLAN OF CARE
--- NOTE | 2020-12-01 14:40 | NUR ---
BAGGAGEMAN NOTES. PT DISCHARGE TO [facility] AT THIS TIME. REPORT CALLED IN TO DELIA JERNIGAN @ [facility]. PT MEDICALLY STABLE AND CLEARED FOR DISCHARGE. ALL CARE, NEED, MEDICATIONS AND TREATMENT ADMINISTERED ANTICIPATED PER ORDER. ALL DISCHARGE INSTRUCTIONS/TEACHINGS PROVIDED.PT HAD NO BELONGINGS. PICTURES TAKEN AND FILED IN CHART BY GLUE JOINTER FEEDER NURSE. ID BAND REMOVED. IV ASSESS REMOVED, PRESSURE APPLIED, SECURED WITH GAUZE AND TAPE. NO S/O BLEEDING OR INFILTRATION NOTED. PT TRANSPORTED OUT OF UNIT IN STABLE CONDITION BY [facility], ACCOMPANIED BY TWO AMBULANCE PERSONNELS. DR CARDONA AND XOCHITL, CHARGE NURSE AWARE.
== END 2020-12-01 14:35 | DRG 640 ==
LOC: ER 02:23 → TRANSITION 04:26 → TELE1 19:07 → TELE 11-28 16:32 → MED 11-29 08:42
PROVIDERS: ADMIT Internal Medicine; ATTEND Internal Medicine
PROC: 30233N1 Transfusion of Nonautologous Red Blood Cells into Peripheral Vein, Percutaneous Approach (ICD-10-PCS; principal; 2020-11-27)
DX: E87.6 Hypokalemia (principal); R53.2 Functional quadriplegia; G93.41 Metabolic encephalopathy; N17.0 Acute kidney failure with tubular necrosis; L89.154 Pressure ulcer of sacral region, stage 4; I21.A1 Myocardial infarction type 2; I13.0 Hypertensive heart and chronic kidney disease with heart failure and stage 1 through stage 4 chronic kidney disease, or unspecified chronic kidney disease; D68.69 Other thrombophilia; L97.418 Non-pressure chronic ulcer of right heel and midfoot with other specified severity; L97.428 Non-pressure chronic ulcer of left heel and midfoot with other specified severity; L97.928 Non-pressure chronic ulcer of unspecified part of left lower leg with other specified severity; D50.9 Iron deficiency anemia, unspecified; F02.80 Dementia in other diseases classified elsewhere, unspecified severity, without behavioral disturbance, psychotic disturbance, mood disturbance, and anxiety; G30.9 Alzheimer's disease, unspecified; E11.22 Type 2 diabetes mellitus with diabetic chronic kidney disease; N18.9 Chronic kidney disease, unspecified; I50.9 Heart failure, unspecified; E78.5 Hyperlipidemia, unspecified; E87.0 Hyperosmolality and hypernatremia; F20.9 Schizophrenia, unspecified; K21.9 Gastro-esophageal reflux disease without esophagitis; K76.89 Other specified diseases of liver; Z86.16 Personal history of COVID-19; Z86.73 Personal history of transient ischemic attack (TIA), and cerebral infarction without residual deficits; Z74.01 Bed confinement status; M20.41 Other hammer toe(s) (acquired), right foot; M20.42 Other hammer toe(s) (acquired), left foot; E03.9 Hypothyroidism, unspecified; R13.10 Dysphagia, unspecified; Z93.1 Gastrostomy status; Z91.81 History of falling; E83.42 Hypomagnesemia; E11.621 Type 2 diabetes mellitus with foot ulcer; Z79.4 Long term (current) use of insulin; Z87.442 Personal history of urinary calculi; E11.40 Type 2 diabetes mellitus with diabetic neuropathy, unspecified
CPT/HCPCS: 36415; 71045-TC; 80048-TC; 80053-TC; 80076-TC; 82272-TC; 82728-TC; 82962-TC; 83540-TC; 83690-TC; 83735-TC; 83880; 84100-TC; 84132-TC; 84244; 84439-TC; 84443-TC; 84484-TC; 85025-TC; 85730-TC; 86850-TC; 87081-TC; 93307-TC; A4217; A6248; A6253; A6403; C9113; G0378; J1650; J1815; J3475; J3480; J3490; J7030; J7040; J7050; P9016-BL; U0003